=== PATIENT | female | born 1950 | race Caucasian/White ===

== ENCOUNTER 2018-04-13 11:38 | Inpatient (IN) | payer OTHER ==
[2018-04-13] MEDS ORDERED: NS 0.9% 1000 ML** 1,000 ML IV ONE ×4 (11:49→12:48)
[2018-04-13 12:15] LABS: Hematocrit 40 % (35-47); Hemoglobin 12.9 g/dl (12.0-16.0); Mean Corpuscular HGB Conc 32 g/dl (31-36); Mean Corpuscular Hemoglobin 27 pg (27-31); Mean Corpuscular Volume 83 fL (80-97); Mean Platelet Volume 7.9 fL (7.4-10.4); Platelet Count 304 10^3/ul (150-450); Red Blood Count 4.84 10^6/ul (4.00-5.40); Red Cell Distribution Width 14 % (10.5-15); White Blood Count 33.8 10^3/ul (3.5-10.8)
[2018-04-13 12:24] LABS: INR 1.22 (0.77-1.02)
[2018-04-13 12:32] LABS: Albumin 3.7 g/dL (3.2-5.2); Albumin/Globulin Ratio 1.2 (1-3); BUN/Creatinine Ratio 18.9 (8-20); C Reactive Protein 184.55 mg/L (<8.01); Calcium 9.1 mg/dL (8.6-10.3); EGFR Non-African American 62.8 (>60); Globulin 3.2 g/dL (2-4); Magnesium 1.5 mg/dL (1.9-2.7); Potassium 3.6 mmol/L (3.5-5.0); Total Bilirubin 0.6 mg/dL (0.2-1.0); Total Protein 6.9 g/dL (6.4-8.9)
[2018-04-13 12:34] LABS: Troponin I 0.02 ng/mL (<0.04)
--- NOTE | 2018-04-13 12:36 | ED ---
GI/ HPI - HPI Summary HPI Summary: Pt is a 67 y/o female brought in by EMS who presents to the ED c/o N/V. She states she began to vomit last night, and had one additional episode today. Pt also c/o fever, weakness, fatigue, dizziness, and LLE redness, swelling, and warmth. She denies any CP or SOB. PMHx DM. Pt states her blood sugar is normal. She reports frequent intermittent issues with her LLE. - History of Current Complaint Time Seen by Provider: 04/13/18 11:50 Stated Complaint: GENERAL ILLNESS Hx Obtained From: Patient, EMS Onset/Duration: Started Days Ago - 1, Still Present Timing: Constant Current Severity: Moderate Pain Intensity: 3 Location of Pain: Other - LLE Associated Signs and Symptoms: Positive: Dizziness, Weakness, Nausea, Vomiting, Fever Aggravating Factor(s): Nothing Alleviating Factor(s): Nothing - Additional Pertinent History Primary Care Physician: [id number] - Allergy/Home Medications Allergies/Adverse Reactions: Allergies Allergy/AdvReac Type Severity Reaction Status Date / Time ciprofloxacin Allergy Hives Verified 04/13/18 14:16 Penicillins Allergy See Comment Verified 04/13/18 14:16 Home Medications: Home Medications Aspirin 81 mg CHEW TAB* [Aspirin Low Dose TAB*] 81 mg PO BEDTIME 04/13/18 [ History Confirmed 04/13/18] B2/Vits A,C,E/Lut/Zeaxanth/Min [Icaps Tablet] 1 each PO BEDTIME 04/13/18 [ History Confirmed 04/13/18] Lisinopril [Lisinopril 2.5 MG-] 2.5 mg PO DAILY 04/13/18 [History Confirmed 05/27] Metformin HCl [Metformin HCl ER] 1,000 mg PO BID 04/13/18 [History Confirmed 05/27] glipiZIDE [Glipizide ER] 10 mg PO BID 04/13/18 [History Confirmed 04/13/18] PMH/Surg Hx/FS Hx/Imm Hx Endocrine/Hematology History: Reports: Hx Diabetes - TYPE II- ON ORAL MEDICATION FOR Comment Only: Other Endocrine/Hematological Disorders - possible pre diabetic obtaining a1c Cardiovascular History: Reports: Other Cardiovascular Problems/Disorders - HISTORY OF PHLEBITIS TO THE LEFT LEG- LAST 04/2015 Respiratory History: Reports: Hx Pneumonia, Other Respiratory Problems/ Disorders - PNEUMONIA-RECENTLY History: Reports: Hx Kidney Stones - HISTORY CURRENTLY, Other Problems/ Disorders - Chronic UTI'S Denies: Hx Acute Renal Failure, Hx Benign Prostatic Hyperplasia, Hx Kidney Infection Musculoskeletal History: Reports: Hx Back Problems - lower back, injury in 30's Sensory History: Reports: Hx Contacts or Glasses - INSTRUCTS GIVEN Denies: Hx Cataracts, Hx Hearing Aid Opthamlomology History: Reports: Hx Contacts or Glasses - INSTRUCTS GIVEN Denies: Hx Cataracts Neurological History: Reports: Hx Headaches Denies: Hx Dementia, Hx Developmental Delay, Hx Migraine, Hx Nerve Disease, Hx Seizures, Hx Spinal Cord Injury, Hx Transient Ischemic Attacks (TIA), Other Neuro Impairments/Disorders - Cancer History Hx Chemotherapy: No Hx Radiation Therapy: No - Surgical History Surgery Procedure, Year, and Place: hysterectomy CYSTOSCOPY STENT INSERTION-2013 , 2015. 2007- NASAL FRACTURE REPAIR. WISDOM TEETH REMOVED A TEENAGER. 2006 - D&C Hx Anesthesia Reactions: Yes - STATES HAS A VERY SMALL MOUTH AND THROAT - Immunization History Date of Tetanus Vaccine: Unk Date of Influenza Vaccine: None Infectious Disease History: No Infectious Disease History: Denies: Traveled Outside the [place] in Last 30 Days - Family History Known Family History: Negative: Hypertension - Social History Alcohol Use: None Hx Substance Use: No Substance Use Type: Reports: None Hx Tobacco Use: No Smoking Status (MU): Never Smoked Tobacco Review of Systems Positive: Fever, Fatigue, Other - Weakness Negative: Chest Pain Negative: Shortness Of Breath Positive: Vomiting, Nausea Positive: Other - LLE redness, pain, swelling Neurological: Other - Dizziness All Other Systems Reviewed And Are Negative: Yes Physical Exam - Summary Physical Exam Summary: Appearance: Well appearing, no pain distress Skin: dry, reflects adequate perfusion, erythema, warmth, and tenderness of LLE below the knee and above the ankle Head/face: normal Eyes: EOMI, DANDRE ENT: mucous membranes dry Neck: supple, non-tender Respiratory: CTA, breath sounds present Cardiovascular: RRR, pulses symmetrical, murmur Abdomen: non-tender, soft Bowel Sounds: present Musculoskeletal: normal, strength/ROM intact Neuro: normal, sensory motor intact, A&Ox3 Triage Information Reviewed: Yes Vital Signs On Initial Exam: Initial Vitals Temp Pulse Resp BP Pulse Ox 102.2 F 95 40 120/65 96 04/13/18 12:01 04/13/18 12:01 04/13/18 12:01 04/13/18 12:01 04/13/18 12:01 Vital Signs Reviewed: Yes Diagnostics - Vital Signs Vital Signs Temp Pulse Resp BP Pulse Ox 04/13/18 12:01 102.2 F 95 40 120/65 96 - Laboratory Lab Results: Lab Results 04/13/18 04/13/18 04/13/18 Range/Units 12:06 12:06 12:06 WBC 33.8 H (3.5-10.8) 10^3/ul RBC 4.84 (4.00-5.40) 10^6/ul Hgb 12.9 (12.0-16.0) g/dl Hct 40 (35-47) % MCV 83 (80-97) fL MCH 27 (27-31) pg MCHC 32 (31-36) g/dl RDW 14 (10.5-15) % Plt Count 304 (150-450) 10^3/ul MPV 7.9 (7.4-10.4) fL Neut % (Auto) Pending Lymph % (Auto) Pending [place] % (Auto) Pending Eos % (Auto) Pending Baso % (Auto) Pending Absolute Neuts (auto) Pending Absolute Lymphs (auto) Pending Absolute Monos (auto) Pending Absolute Eos (auto) Pending Absolute Basos (auto) Pending Absolute Nucleated RBC Pending Nucleated RBC % Pending INR (Anticoag Therapy) 1.22 H (0.77-1.02) Sodium 134 L (135-145) mmol/L Potassium 3.6 (3.5-5.0) mmol/L Chloride 101 (101-111) mmol/L Carbon Dioxide 22 (22-32) mmol/L Anion Gap 11 (2-11) mmol/L BUN 17 (6-24) mg/dL Creatinine 0.90 (0.51-0.95) mg/dL Est GFR ( Amer) 76.0 (>60) Est GFR (Non-Af Amer) 62.8 (>60) BUN/Creatinine Ratio 18.9 (8-20) Glucose 258 H (70-100) mg/dL Calcium 9.1 (8.6-10.3) mg/dL Magnesium 1.5 L (1.9-2.7) mg/dL Total Bilirubin 0.60 (0.2-1.0) mg/dL AST 14 (13-39) U/L ALT 16 (7-52) U/L Alkaline Phosphatase 58 (34-104) U/L Troponin I 0.02 (<0.04) ng/mL C-Reactive Protein 184.55 H (<8.01) mg/L Total Protein 6.9 (6.4-8.9) g/dL Albumin 3.7 (3.2-5.2) g/dL Globulin 3.2 (2-4) g/dL Albumin/Globulin Ratio 1.2 (1-3) TSH Pending Result Diagrams: 04/13/18 12:06 04/13/18 12:06 Lab Statement: Any lab studies that have been ordered have been reviewed, and results considered in the medical decision making process. - Radiology CXR Radiology Interpretation Completed By: Radiologist Summary of Radiographic Findings: No radiographic evidence for acute cardiopulmonary abnormality on this. portable chest x-ray. ED physician reviewed radiology report. - Ultrasound No standard instances Ultrasound Interpretation Completed By: Radiologist Summary of Ultrasound Findings: Venous Doppler Study: No sonographic evidence of deep vein thrombosis. ED physician reviewed radiology report. - EKG 12:09 Cardiac Rate: NL - [address] Segment: Normal Summary of EKG Findings: Nl axis, RBBB GIGU Course/Dx - Course Course Of Treatment: Nurse's notes reviewed. Patient with diabetes presents with Sirs/sepsis and source apparent in the skin of the lower leg on the left. She was started on IV clindamycin and received IV fluid resuscitation. Her blood sugars modestly elevated. Her WBC is grossly elevated. I discussed the case with the hospitalist who agrees to admit. Patient is stable otherwise. Lactate elevated meeting criteria for severe sepsis without shock. - Diagnoses Differential Diagnoses - Female: Other - UTI, pneumonia, cellulitis, sepsis/ severe sepsis, septic shock, DKA Provider Diagnoses: Cellulitis of left leg, Severe sepsis, Hyperglycemia due to type 2 diabetes mellitus - Physician Notifications Discussed Care Of Patient With: Dillon Levine Time Discussed With Above Provider: 12:40 Instructed by Provider To: Admit As Inpatient - Critical Care Time Critical Care Time: 30-74 min - Critical care time is exclusive of separately billable procedures Discharge - Sign-Out/Discharge Documenting (check all that apply): Patient Departure - Admit Patient Received Moderate/Deep Sedation with Procedure: No - Discharge Plan Condition: Stable Disposition: ADMITTED TO [facility] - Billing Disposition and Condition Condition: STABLE Disposition: Admitted to [facility] - Attestation Statements Document Initiated by Eloiseibe: Yes Documenting Scribe: Earnestine Palmer Provider For Whom Scribe is Documenting (Include Credential): Dequan Underwood MD Scribe Attestation: Earnestine Hayes, scribed for Dequan Underwood MD on 04/13/18 at 2105. Scribe Documentation Reviewed: Yes Provider Attestation: The documentation as recorded by the Earnestine leon accurately reflects the service I personally performed and the decisions made by Dequan sheffield MD Status of Scribe Document: Viewed
[2018-04-13 12:41] LABS: ABS Basophils 0.2 10^3/ul (0-0.2); ABS Eosinophils 0 10^3/ul (0-0.6); ABS Lymphocytes 0.5 10^3/ul (1.0-4.8); ABS Monocytes 1.4 10^3/ul (0-0.8); ABS Neutrophils 31.8 10^3/ul (1.5-7.7); ABS Nucleated RBC 0 10^3/ul; Eosinophil % 0 %; Lymphocyte % 1.4 %; Nucleated Red Blood Cells % 0
[2018-04-13] MEDS ORDERED: Magnesium Sulfate IV* 3 GM in NS 0.9% 100 ML* 100 ML IVPB ONE (13:14)
[2018-04-13] MEDS ORDERED: Vancomycin(*) 1,000 MG in NS 0.9% 250 ML* 250 ML IVPB ONE (13:16)
[2018-04-13 13:24] LABS: TSH (Thyroid Stimulating Horm) 1.03 mcIU/mL (0.34-5.60)
[2018-04-13] MEDS ORDERED: NS 0.9% 250 ML* 250 ML ONE (13:55)
[2018-04-13] MEDS ORDERED: Vancomycin(*) 1,000 MG BAG/ADDV IVPB ONE (13:56)
[2018-04-13] MEDS ORDERED: Dextrose 50% Syringe 50 ML* 25 GM/50 ML SYRINGE IV PUSH PRN (14:05)
[2018-04-13] MEDS: Acetaminophen TAB* 325 MG PO PRN ×2 (16:21→22:17)
[2018-04-13] MEDS: NS 0.9% 1000 ML** 1,000 ML IV SCH (17:13)
[2018-04-13] MEDS: Insulin LISPRO* 1 UNITS UNIT SUBCUT SCH (17:32)
[2018-04-13 17:41] LABS: Urine Appearance Cloudy; Urine Bacteria 3+ (Absent); Urine Bilirubin Negative (Negative); Urine Blood 2+ (Negative); Urine Color Amber; Urine Glucose Negative (Negative); Urine Ketones Negative (Negative); Urine Nitrite Positive (Negative); Urine Protein 1+(30 mg/dL) (Negative); Urine Red Blood Cell 1+(3-5/hpf) (Absent); Urine Specific Gravity 1.017 (1.010-1.030); Urine Squamous Epithelial Cell Present (Absent); Urine Urobilinogen Negative (Negative); Urine White Blood Cell 3+(>20/hpf) (Absent)
[2018-04-13] MEDS ORDERED: Vancomycin per Pharmacy* NOTE FOLLOW UP PRN (17:58)
[2018-04-13] MEDS ORDERED: cefTRIAXone(*) 1 GM in NS 0.9% 50 ML* 50 ML IVPB SCH (18:00)
--- NOTE | 2018-04-13 19:11 | HP ---
CC: Dr. Horn * [facility] MEDICINE HISTORY AND PHYSICAL: DATE OF ADMISSION: 04/13/18 PRIMARY CARE PHYSICIAN: Dr. Horn. ATTENDING PHYSICIAN: Dr. Dillon Levine * (dictation provided by Yessica Patterson NP). CHIEF COMPLAINT: Nausea, vomiting, and confusion. HISTORY OF PRESENT ILLNESS: Ms. Arthur is a 67-year-old female with a past medical history of diabetes and frequent urinary tract infections with kidney stones, who presents to the hospital today with concern for nausea and vomiting last night and now with confusion. Ms. Arthur is supported in her HPI by her family who are at the bedside. They report that she remains a bit confused at this time and they provide corroborating details. Ms. Arthur is reported to have been doing well until yesterday. She went out to a local restaurant to eat and thereafter she had nausea and vomiting. Her family noted that she seemed somewhat confused, but not enough to raise any alarms while driving. Thereafter, she went to bed and seemed to be doing okay. The patient's daughter spoke with her this morning on the phone and she seemed quite confused and therefore they came to check on her and ultimately had her brought to the emergency room for evaluation. In the emergency room, Ms. Arthur has been noted to have a leukocytosis with a white blood cell count of 33.8. She has a lactic acid at 3.4. Her CRP is 184.55. She has a fever at 102.2. Her blood pressure is stable running systolically 120s to 130s. She has a venous Doppler study, which shows no DVT to the left lower extremity where there is erythema and warmth. PAST MEDICAL HISTORY: 1. Type 2 diabetes, non-insulin dependent. 2. History of kidney stones and frequent urinary tract infections, followed by [facility]. MEDICATIONS: 1. Glipizide ER 10 mg p.o. b.i.d. 2. Metformin ER 1000 mg p.o. b.i.d. 3. Lisinopril 2.5 mg daily. 4. VESIcare 10 mg p.o. daily. 5. Potassium citrate 20 mEq p.o. b.i.d. 6. Multivitamin 1 tab p.o. daily. ALLERGIES: CIPROFLOXACIN and PENICILLIN. FAMILY HISTORY: Mother had a history of breast cancer and father had a history of Parkinson. SOCIAL HISTORY: No report of alcohol, tobacco or drug use. She is . She states that her surrogate decision maker is her , Abdelrahman. REVIEW OF SYSTEMS: A 14-point review of systems was completed with Ms. Arthur and all those not mentioned above were negative. PHYSICAL EXAMINATION GENERAL: Ms. Arthur is lying in the bed. She is in no acute distress. VITAL SIGNS: Temperature 102.2, pulse rate 95, respiratory rate 27, O2 saturation 97% on room air, blood pressure 132/69. LUNGS: Clear to auscultation bilaterally with no accessory muscle use and good aeration. HEART: S1 and S2. No murmur, rub or gallop, and regular. ABDOMEN: Soft and nontender with bowel sounds positive x4. EXTREMITIES: No cyanosis. Positive for mild edema to the left calf with pronounced erythema and warmth. NEUROLOGIC: She is alert. She is oriented x3, but the family reports that she is not answering some questions appropriately or correctly. She moves all extremities equally. There is no facial asymmetry or focal weakness. Extraocular movements are intact. SKIN: No skin breakdown, but again erythema and warmth is noted to the left calf ranging from the ankle to just below the knee and this has been outlined with a marker in the emergency department today. DIAGNOSTIC STUDIES/LAB DATA: Chest x-ray shows no radiographic evidence for acute cardiopulmonary abnormality. The evening Doppler's study shows no evidence for DVT. EKG shows a sinus tachycardia with a right bundle-branch block, which is not new. ASSESSMENT AND PLAN: Ms. Arthur is a 67-year-old female with a past medical history of diabetes, who presents today to the hospital with concern for nausea , vomiting, confusion, and now found to have sepsis likely to left lower extremity cellulitis. Our plans are for inpatient admission as I expect her length of stay to be greater than 2 days for the followin. Sepsis secondary to cellulitis. The patient has a dramatically elevated white blood cell count. She has an elevated CRP and she is febrile. She has a pronounced erythema and warmth in her left lower extremity consistent with likely cellulitis. Our plans will be to treat with vancomycin given the severity of her illness and we can deescalate her antibiotic therapy once she is more clinically stable. She has been ordered to receive an appropriate amount of IV fluids in the emergency department at 30 mL/kg. Her lactic acid was elevated, we will be rechecking this shortly. Blood cultures have been sent. 2. Type 2 diabetes. Plan to hold metformin and glipizide. The patient will have blood glucoses q.a.c. with lispro sliding scale insulin. We could add Lantus if need be. 3. DVT prophylaxis with heparin subcu. 4. Code status is full code. 5. Hypomagnesemia. Plan to replete her magnesium. 6. Disposition to medical floor. TIME SPENT: Approximately 60 minutes was spent in the admission of this patient , more than half of that time was spent with the patient at the bedside reviewing the events leading up to this hospitalization, performing the physical examination, and reviewing my plan of care. YESSICA PATTERSON, ELVIS [id number]/CPS #: [id number]
--- NOTE | 2018-04-13 19:38 | PN ---
Progress Note - Progress Note Date of Service: 04/13/18 Note: Note is made that patient has a grossly positive UA, plan to add ceftriaxone pending urine culture results.
[2018-04-13] MEDS: Heparin VIAL(*) 5000 UNITS/ML VIAL (FIVE THOUSAND) SUBCUT SCH (22:15)
[2018-04-13] MEDS: PTO:Potassium Citrate (NF) 10 MEQ TAB PO SCH (22:15)
[2018-04-14] MEDS: Vancomycin(*) 1,250 MG in NS 0.9% 250 ML* 250 ML IVPB SCH ×2 (00:20→16:12)
[2018-04-14] MEDS ORDERED: Ibuprofen TAB* 400 MG ONE (03:57)
[2018-04-14] MEDS: Ibuprofen TAB* 400 MG PO PRN ×3 (03:58→15:45)
[2018-04-14 06:15] LABS: ABS Basophils 0.1 10^3/ul (0-0.2); ABS Eosinophils 0 10^3/ul (0-0.6); ABS Lymphocytes 0.8 10^3/ul (1.0-4.8); ABS Nucleated RBC 0 10^3/ul; Eosinophil % 0 %; Hematocrit 34 % (35-47); Lymphocyte % 4.5 %; Mean Corpuscular HGB Conc 33 g/dl (31-36); Mean Corpuscular Hemoglobin 27 pg (27-31); Mean Corpuscular Volume 83 fL (80-97); Mean Platelet Volume 7.9 fL (7.4-10.4); Nucleated Red Blood Cells % 0; Platelet Count 216 10^3/ul (150-450); Red Blood Count 4.04 10^6/ul (4.00-5.40); Red Cell Distribution Width 15 % (10.5-15); White Blood Count 16.8 10^3/ul (3.5-10.8)
[2018-04-14 06:45] LABS: BUN/Creatinine Ratio 22.7 (8-20); Calcium 7.8 mg/dL (8.6-10.3); EGFR African American 93.8 (>60); EGFR Non-African American 77.6 (>60); Potassium 3.4 mmol/L (3.5-5.0)
[2018-04-14] MEDS: Heparin VIAL(*) 5000 UNITS/ML VIAL (FIVE THOUSAND) SUBCUT SCH ×3 (09:39→21:21)
[2018-04-14] MEDS: NS 0.9% 1000 ML** 1,000 ML IV SCH (09:50)
[2018-04-14] MEDS ORDERED: ceFAZolin 2 GM PREMIX in ORs 2 GM/50 ML BAG IVPB SCH (10:30)
[2018-04-14] MEDS: Insulin LISPRO* 1 UNITS UNIT SUBCUT SCH ×3 (12:03→17:43)
[2018-04-14 12:10] LABS: Influenza A Molecular NEGATIVE (Negative); Influenza B Molecular NEGATIVE (Negative)
[2018-04-14] MEDS: PTO:Potassium Citrate (NF) 10 MEQ TAB PO SCH ×2 (12:45→21:19)
--- NOTE | 2018-04-14 14:54 | PN ---
Subjective Date of Service: 04/14/18 Interval History: Tmax 103.3, defervseced. Complaint of headache, body ache, nonproductive cough. Flu swab negative this AM got 2 doses of vancomycin and cftx (for suspected UTI) WBC improved to 16.8 from 33.8. antibiotics switched to cefazolin this AM after rash seemed improved from original outline but about 12 hours after second vancomycin dose some blotchy mild ertyhema and warmth extended proximal to outline and vanc+ cftx reordered. confusion resolved. no chest pain, abdominal pain. A1C 6.4 in February she says. Objective Active Medications: Acetaminophen (Tylenol Tab*) 650 mg PO Q6H PRN PRN Reason: pain/fever Last Admin: 04/13/18 22:17 Dose: 650 mg Dextrose (D50w Syringe 50 Ml*) 12.5 gm IV PUSH .FOR FS < 60 - SS PRN PRN Reason: FS < 60 Heparin Sodium (Porcine) (Heparin Vial(*)) 5,000 units SUBCUT Q8HR [facility] Last Admin: 04/14/18 12:44 Dose: 5,000 units Sodium Chloride (Ns 0.9% 1000 Ml) 1,000 mls @ 75 mls/hr IV PER RATE [facility] Last Admin: 04/14/18 09:50 Dose: 75 mls/hr Ceftriaxone Sodium 1 gm/ (Sodium Chloride) 50 mls @ 200 mls/hr IVPB Q24H [facility] Ibuprofen (Motrin Tab*) 400 mg PO Q6H PRN PRN Reason: PAIN Last Admin: 04/14/18 09:38 Dose: 400 mg Insulin Human Lispro (Humalog*) 0 units SUBCUT [facility]; Protocol Last Admin: 04/14/18 12:46 Dose: 2 units Pharmacy Consult (Vancomycin Per Pharmacy*) 1 note FOLLOW UP . PRN PRN Reason: PER PROTOCOL Pharmacy Consult (Vancomycin Per Pharmacy*) 1 note FOLLOW UP .VANC PER PHARMACY [facility] Pharmacy Profile Note (Vancomycin Trough Check) 1 note FOLLOW UP 1130 ONE Stop: 04/15/18 11:31 Potassium Citrate (Urocit-K 10 (Nf)) 20 meq PO BID [facility] Last Admin: 04/14/18 12:45 Dose: 20 meq Solifenacin (Vesicare(Nf)) 10 mg PO DAILY [facility] Vancomycin HCl (Vancomycin(*)) 2,000 mg 15 mg/kg (2000 mg) IVPB ONCE CELIA Vital Signs - 8 hr 04/14/18 04/14/18 04/14/18 07:20 08:00 11:24 Temperature 97.8 F 97.9 F Pulse Rate 73 74 Respiratory 17 16 18 Rate Blood Pressure 120/58 123/56 (mmHg) O2 Sat by Pulse 96 97 Oximetry Oxygen Devices in Use Now: None Appearance: NAD Eyes: No Scleral Icterus Neck: NL Appearance and Movements; NL JVP, Trachea Midline Respiratory: Symmetrical Chest Expansion and Respiratory Effort, Clear to Auscultation Cardiovascular: NL Sounds; No Murmurs; No JVD, RRR Abdominal: NL Sounds; No Tenderness; No Distention, No Hepatosplenomegaly, - - morbidly obese Extremities: No Edema, - - left calf with erythema circumferential band distally , milder more proximally. now mild erythema and warmth proximally. 1+ pitting edema. Skin: No Rash or Ulcers Neurological: Alert and Oriented x 3 Nutrition: Taking PO's Result Diagrams: 04/14/18 05:59 04/14/18 05:59 Additional Lab and Data: Laboratory Results - last 24 hr 04/13/18 04/13/18 04/13/18 15:30 17:09 18:12 WBC RBC Hgb Hct MCV MCH MCHC RDW Plt Count MPV Neut % (Auto) Lymph % (Auto) [place] % (Auto) Eos % (Auto) Baso % (Auto) Absolute Neuts (auto) Absolute Lymphs (auto) Absolute Monos (auto) Absolute Eos (auto) Absolute Basos (auto) Absolute Nucleated RBC Nucleated RBC % Sodium Potassium Chloride Carbon Dioxide Anion Gap BUN Creatinine Est GFR ( Amer) Est GFR (Non-Af Amer) BUN/Creatinine Ratio Glucose POC Glucose (mg/dL) 193 H Lactic Acid 1.9 Calcium Urine Color [place] Urine Appearance Cloudy Urine pH 6.0 Ur Specific [place] 1.017 Urine Protein 1+(30 mg/dl) A Urine Ketones Negative Urine Blood 2+ A Urine Nitrate Positive A Urine Bilirubin Negative Urine Urobilinogen Negative Ur Leukocyte Esterase 1+ A Urine WBC (Auto) 3+(>20/hpf) A Urine RBC (Auto) 1+(3-5/hpf) A Ur Squamous Epith Cells Present A Urine Bacteria 3+ A Urine Glucose Negative Influenza A (Rapid) Influenza B (Rapid) 04/14/18 04/14/18 04/14/18 05:59 05:59 07:55 WBC 16.8 H RBC 4.04 Hgb 11.0 L Hct 34 L MCV 83 MCH 27 MCHC 33 RDW 15 Plt Count 216 MPV 7.9 Neut % (Auto) 89.3 Lymph % (Auto) 4.5 [place] % (Auto) 5.7 Eos % (Auto) 0 Baso % (Auto) 0.5 Absolute Neuts (auto) 15.0 H Absolute Lymphs (auto) 0.8 L Absolute Monos (auto) 1.0 H Absolute Eos (auto) 0 Absolute Basos (auto) 0.1 Absolute Nucleated RBC 0 Nucleated RBC % 0 Sodium 136 Potassium 3.4 L Chloride 109 Carbon Dioxide 21 L Anion Gap 6 BUN 17 Creatinine 0.75 Est GFR ( Amer) 93.8 Est GFR (Non-Af Amer) 77.6 BUN/Creatinine Ratio 22.7 H Glucose 134 H POC Glucose (mg/dL) 123 H Lactic Acid Calcium 7.8 L Urine Color Urine Appearance Urine pH Ur Specific [place] Urine Protein Urine Ketones Urine Blood Urine Nitrate Urine Bilirubin Urine Urobilinogen Ur Leukocyte Esterase Urine WBC (Auto) Urine RBC (Auto) Ur Squamous Epith Cells Urine Bacteria Urine Glucose Influenza A (Rapid) Influenza B (Rapid) 04/14/18 04/14/18 11:50 11:58 WBC RBC Hgb Hct MCV MCH MCHC RDW Plt Count MPV Neut % (Auto) Lymph % (Auto) [place] % (Auto) Eos % (Auto) Baso % (Auto) Absolute Neuts (auto) Absolute Lymphs (auto) Absolute Monos (auto) Absolute Eos (auto) Absolute Basos (auto) Absolute Nucleated RBC Nucleated RBC % Sodium Potassium Chloride Carbon Dioxide Anion Gap BUN Creatinine Est GFR ( Amer) Est GFR (Non-Af Amer) BUN/Creatinine Ratio Glucose POC Glucose (mg/dL) 145 H Lactic Acid Calcium Urine Color Urine Appearance Urine pH Ur Specific [place] Urine Protein Urine Ketones Urine Blood Urine Nitrate Urine Bilirubin Urine Urobilinogen Ur Leukocyte Esterase Urine WBC (Auto) Urine RBC (Auto) Ur Squamous Epith Cells Urine Bacteria Urine Glucose Influenza A (Rapid) Negative Influenza B (Rapid) Negative Microbiology and Other Data: Microbiology 04/13/18 12:23 Blood Venous Aerobic Blood Culture - Preliminary No Growth Day 1 04/13/18 12:23 Blood Venous Anaerobic Blood Culture - Preliminary No Growth Day 1 04/13/18 12:06 Blood Venous Aerobic Blood Culture - Preliminary No Growth Day 1 04/13/18 12:06 Blood Venous Anaerobic Blood Culture - Preliminary No Growth Day 1 04/14/18 10:08 Nasal Influenza Types A,B Antigen - Final Specimen received for Influenza A/B Molecular testing Assess/Plan/Problems-Billing Assessment: 67 yo female PMH NIDDM, super morbid obesity, frequent kidney stones and UTIs presents with sepsis(fever 103.3, WBC 33.8, tachycardia) secondary to left leg cellulitis. UA suspicious for UTI. Vancomycin/Ceftriaxone. - Patient Problems (1) Cellulitis Current Visit: Yes Status: Acute Code(s): L03.90 - CELLULITIS, UNSPECIFIED SNOMED Code(s): 984198018 Comment: Seemed improving on vancomycin and may have back slide a little bit after 12hr after last dose (while getting cefazolin instead). Will return to MRSA coverage with vancomycin. f/u blood cultures. nonpurulent. (2) Sepsis Current Visit: No Status: Acute Priority: High Comment: likely 2/2 Cellulitis and UTI. Improving on empiric MRSA coverage vancomycin given acuity and severity of presentation. (3) UTI (urinary tract infection) Current Visit: Yes Status: Acute Comment: f/u UCx Continue Cftx 1g q24. day 2. (4) DVT prophylaxis Current Visit: No Status: Acute Priority: Medium Code(s): LXI2261 - SNOMED Code(s): 135674904 Comment: heparin 5000 TID (5) Diabetes Current Visit: No Status: Chronic Priority: Medium Code(s): E11.9 - TYPE 2 DIABETES MELLITUS WITHOUT COMPLICATIONS SNOMED Code(s): 67900759 Comment: holding home metformin, glipizide. SSI poc qachs last A1C reportedly 6.4 in Feb 2018 Status and Disposition: medicine inpatient. needing IV antibiotics still.
[2018-04-14] MEDS ORDERED: Vancomycin(*) 1,000 MG in NS 0.9% 250 ML* 250 ML IVPB SCH (15:00)
[2018-04-14] MEDS ORDERED: Vancomycin(*) 1,000 MG VIAL IVPB SCH (15:00)
[2018-04-14] MEDS ORDERED: Vancomycin(*) 2,000 MG in NS 0.9% 500 ML* 500 ML IVPB ONE (15:00)
[2018-04-14] MEDS ORDERED: Vancomycin per Pharmacy* NOTE FOLLOW UP SCH (15:00)
[2018-04-14] MEDS: Acetaminophen TAB* 325 MG PO PRN (15:45)
[2018-04-14] MEDS: Vancomycin(*) 1,000 MG in NS 0.9% 250 ML* 250 ML IVPB SCH ×2 (15:49→22:50)
[2018-04-14] MEDS: Lisinopril TAB* 5 MG PO SCH (17:44)
[2018-04-14] MEDS ORDERED: cefTRIAXone(*) 1 GM in NS 0.9% 50 ML* 50 ML IVPB SCH (18:00)
[2018-04-14] MEDS ORDERED: SUMAtriptan TAB* 50 MG PO ONE (18:05)
[2018-04-14] MEDS ORDERED: oxyCODONE/Acetamin 5/325 MG* TAB PO ONE (22:47)
[2018-04-14] MEDS: ICAPS PO SCH (23:26)
[2018-04-15] MEDS: NS 0.9% 1000 ML** 1,000 ML IV SCH ×2 (02:28→16:58)
[2018-04-15] MEDS: oxyCODONE/Acetamin 5/325 MG* TAB PO PRN ×4 (02:51→22:23)
[2018-04-15 05:58] LABS: ABS Basophils 0 10^3/ul (0-0.2); ABS Eosinophils 0.1 10^3/ul (0-0.6); ABS Lymphocytes 0.7 10^3/ul (1.0-4.8); ABS Monocytes 0.8 10^3/ul (0-0.8); ABS Neutrophils 9.7 10^3/ul (1.5-7.7); ABS Nucleated RBC 0 10^3/ul; Eosinophil % 0.7 %; Hematocrit 35 % (35-47); Hemoglobin 11.2 g/dl (12.0-16.0); Lymphocyte % 6.3 %; Mean Corpuscular HGB Conc 33 g/dl (31-36); Mean Corpuscular Hemoglobin 27 pg (27-31); Mean Corpuscular Volume 84 fL (80-97); Mean Platelet Volume 8.4 fL (7.4-10.4); Nucleated Red Blood Cells % 0; Platelet Count 221 10^3/ul (150-450); Red Blood Count 4.12 10^6/ul (4.00-5.40); Red Cell Distribution Width 15 % (10.5-15); White Blood Count 11.4 10^3/ul (3.5-10.8)
[2018-04-15 06:19] LABS: BUN/Creatinine Ratio 22.7 (8-20); C Reactive Protein 302.59 mg/L (<8.01); EGFR African American 108.8 (>60); EGFR Non-African American 89.9 (>60); Potassium 3.9 mmol/L (3.5-5.0)
[2018-04-15] MEDS: Heparin VIAL(*) 5000 UNITS/ML VIAL (FIVE THOUSAND) SUBCUT SCH ×3 (06:25→20:19)
[2018-04-15] MEDS: Vancomycin(*) 1,000 MG in NS 0.9% 250 ML* 250 ML IVPB SCH ×2 (06:25→13:52)
[2018-04-15 06:58] LABS: Erythrocyte Sed Rate 74 mm/Hr (0-40)
[2018-04-15] MEDS: Lisinopril TAB* 5 MG PO SCH (08:51)
[2018-04-15] MEDS: PTO: Solifenacin(NF) 10 MG TAB PO SCH (08:52)
[2018-04-15] MEDS: PTO:Potassium Citrate (NF) 10 MEQ TAB PO SCH ×2 (08:52→20:18)
[2018-04-15] MEDS: Insulin LISPRO* 1 UNITS UNIT SUBCUT SCH ×3 (08:53→17:55)
[2018-04-15] MEDS ORDERED: oxyCODONE TAB* 5 MG TAB PO ONE (10:56)
[2018-04-15] MEDS: Acetaminophen TAB* 325 MG PO PRN (11:16)
--- NOTE | 2018-04-15 11:28 | PN ---
Subjective Date of Service: 04/15/18 Interval History: progressive and worsened erythema to both the original boundary lines and the new lines from yesterday leukocytosis improved. Tmax 100.5 this AM. headaches continue, improved with percoset but then came back. stabbing then pinching. ID consulted. Objective Active Medications: Acetaminophen (Tylenol Tab*) 650 mg PO Q6H PRN PRN Reason: pain/fever Last Admin: 04/15/18 11:16 Dose: 650 mg Dextrose (D50w Syringe 50 Ml*) 12.5 gm IV PUSH .FOR FS < 60 - SS PRN PRN Reason: FS < 60 Docusate Sodium (Colace Cap*) 100 mg PO BID PRN PRN Reason: CONSTIPATION Heparin Sodium (Porcine) (Heparin Vial(*)) 5,000 units SUBCUT Q8HR [facility] Last Admin: 04/15/18 06:25 Dose: 5,000 units Sodium Chloride (Ns 0.9% 1000 Ml) 1,000 mls @ 75 mls/hr IV PER RATE [facility] Last Admin: 04/15/18 02:28 Dose: 75 mls/hr Ceftriaxone Sodium 1 gm/ (Sodium Chloride) 50 mls @ 200 mls/hr IVPB Q24H [facility] Last Admin: 04/14/18 18:04 Dose: 200 mls/hr Vancomycin HCl 1,000 mg/ (Sodium Chloride) 250 mls @ 166.667 mls/hr IVPB Q8HR [facility] Last Admin: 04/15/18 06:25 Dose: 166.667 mls/hr Ibuprofen (Motrin Tab*) 400 mg PO Q6H PRN PRN Reason: PAIN Last Admin: 04/14/18 15:45 Dose: 400 mg Insulin Human Lispro (Humalog*) 0 units SUBCUT AC [facility]; Protocol Last Admin: 04/15/18 08:53 Dose: 2 units Lisinopril (Prinivil Tab*) 2.5 mg PO DAILY [facility] Last Admin: 04/15/18 08:51 Dose: 2.5 mg Pto: [Icaps Tablet] 1 each PO BEDTIME [facility] Last Admin: 04/14/18 23:26 Dose: 1 each Oxycodone/Acetaminophen (Percocet 5/325 Tab*) 1 tab PO Q6H PRN PRN Reason: PAIN Last Admin: 04/15/18 08:51 Dose: 1 tab Pharmacy Consult (Vancomycin Per Pharmacy*) 1 note FOLLOW UP .VANC PER PHARMACY [facility] Pharmacy Profile Note (Vancomycin Trough Check) 1 note FOLLOW UP ONCE ONE Stop: 04/16/18 05:31 Potassium Citrate (Urocit-K 10 (Nf)) 20 meq PO BID [facility] Last Admin: 04/15/18 08:52 Dose: 20 meq Senna (Senokot Tab*) 1 tab PO BEDTIME PRN PRN Reason: CONSTIPATION Solifenacin (Vesicare(Nf)) 10 mg PO DAILY [facility] Last Admin: 04/15/18 08:52 Dose: 10 mg Vital Signs - 8 hr 04/15/18 04/15/18 04/15/18 03:42 04:55 07:38 Temperature 99.6 F 98.9 F Pulse Rate 79 83 Respiratory 16 18 18 Rate Blood Pressure 132/57 135/68 (mmHg) O2 Sat by Pulse 94 98 Oximetry 04/15/18 04/15/18 04/15/18 08:51 08:56 10:55 Temperature 100.5 F Pulse Rate Respiratory 18 18 Rate Blood Pressure (mmHg) O2 Sat by Pulse Oximetry 04/15/18 11:16 Temperature Pulse Rate Respiratory 18 Rate Blood Pressure (mmHg) O2 Sat by Pulse Oximetry Oxygen Devices in Use Now: None Appearance: NAd Eyes: No Scleral Icterus, PERRLA Neck: NL Appearance and Movements; NL JVP, Trachea Midline Respiratory: Symmetrical Chest Expansion and Respiratory Effort, Clear to Auscultation Cardiovascular: NL Sounds; No Murmurs; No JVD Extremities: - - left leg with worse and more expansive erythema, non fluctuant. tender Skin: - - as above. Neurological: Alert and Oriented x 3, NL Sensation Nutrition: Taking PO's Result Diagrams: 04/15/18 05:35 04/15/18 05:35 Additional Lab and Data: Laboratory Results - last 24 hr 04/15/18 04/15/18 04/15/18 05:35 05:35 07:47 WBC 11.4 H RBC 4.12 Hgb 11.2 L Hct 35 MCV 84 MCH 27 MCHC 33 RDW 15 Plt Count 221 MPV 8.4 Neut % (Auto) 85.7 Lymph % (Auto) 6.3 [place] % (Auto) 7.0 Eos % (Auto) 0.7 Baso % (Auto) 0.3 Absolute Neuts (auto) 9.7 H Absolute Lymphs (auto) 0.7 L Absolute Monos (auto) 0.8 Absolute Eos (auto) 0.1 Absolute Basos (auto) 0 Absolute Nucleated RBC 0 Nucleated RBC % 0 ESR 74 H Sodium 136 Potassium 3.9 Chloride 107 Carbon Dioxide 22 Anion Gap 7 BUN 15 Creatinine 0.66 Est GFR ( Amer) 108.8 Est GFR (Non-Af Amer) 89.9 BUN/Creatinine Ratio 22.7 H Glucose 152 H POC Glucose (mg/dL) 140 H Calcium 8.0 L C-Reactive Protein 302.59 H 04/15/18 04/15/18 11:59 16:50 WBC RBC Hgb Hct MCV MCH MCHC RDW Plt Count MPV Neut % (Auto) Lymph % (Auto) [place] % (Auto) Eos % (Auto) Baso % (Auto) Absolute Neuts (auto) Absolute Lymphs (auto) Absolute Monos (auto) Absolute Eos (auto) Absolute Basos (auto) Absolute Nucleated RBC Nucleated RBC % ESR Sodium Potassium Chloride Carbon Dioxide Anion Gap BUN Creatinine Est GFR ( Amer) Est GFR (Non-Af Amer) BUN/Creatinine Ratio Glucose POC Glucose (mg/dL) 162 H 181 H Calcium C-Reactive Protein Microbiology and Other Data: Microbiology 04/13/18 15:30 Urine Urine Culture - Final Escherichia Coli Escherichia Coli#2 04/13/18 12:23 Blood Venous Aerobic Blood Culture - Preliminary No Growth Day 2 04/13/18 12:23 Blood Venous Anaerobic Blood Culture - Preliminary No Growth Day 2 04/13/18 12:23 Blood Venous Blood Culture - Preliminary No Growth Day 2 04/13/18 12:06 Blood Venous Aerobic Blood Culture - Preliminary No Growth Day 2 04/13/18 12:06 Blood Venous Anaerobic Blood Culture - Preliminary No Growth Day 2 04/14/18 10:08 Nasal Influenza Types A,B Antigen - Final Specimen received for Influenza A/B Molecular testing Assess/Plan/Problems-Billing Assessment: 67 yo female PMH NIDDM, super morbid obesity, frequent kidney stones and UTIs presents with sepsis(fever 103.3, WBC 33.8, tachycardia) secondary to left leg cellulitis. UA suspicious for UTI. Vancomycin/Ceftriaxone and now cefazolin. - Patient Problems (1) Cellulitis Current Visit: Yes Status: Acute Code(s): L03.90 - CELLULITIS, UNSPECIFIED SNOMED Code(s): 399808424 Comment: Seemed to worsen last 24 hours on vancomycin + cftz. Appreciate ID recs. Suspicius for streptococcal cellulitis and switched back to cefazolin. f/u blood cultures. nonpurulent. (2) Sepsis Current Visit: No Status: Acute Priority: High Comment: likely 2/2 Cellulitis and UTI.Plan as above. (3) UTI (urinary tract infection) Current Visit: Yes Status: Acute Comment: Back to Cefazolin 1g q8. day 3 abx. (4) DVT prophylaxis Current Visit: No Status: Acute Priority: Medium Code(s): URZ3080 - SNOMED Code(s): 900074352 Comment: heparin 5000 TID (5) Diabetes Current Visit: No Status: Chronic Priority: Medium Code(s): E11.9 - TYPE 2 DIABETES MELLITUS WITHOUT COMPLICATIONS SNOMED Code(s): 30564023 Comment: holding home metformin, glipizide. SSI poc qachs last A1C reportedly 6.4 in Feb 2018 Status and Disposition: medicine inpatient. needing IV antibiotics still.
[2018-04-15] MEDS: ceFAZolin 1 GM ADVAN(*) 1 GM in NS 0.9% 50 ML* 50 ML IVPB SCH ×2 (16:04→22:23)
--- NOTE | 2018-04-15 16:04 | CONS ---
CONSULTATION REPORT: DATE OF CONSULT: 04/15/18 REQUESTING PHYSICIAN: Dr. Levine. CONSULTING SERVICE: Infectious Disease. REASON FOR CONSULT: Left leg cellulitis. HISTORY OF PRESENT ILLNESS: This is a 67-year-old woman with diabetes, admitted with encephalopathy due to infection. She was found to have left leg cellulitis in the ER. She was started on broad-spectrum antibiotics. She was continued on them here. The redness has waxed and waned a little bit. She had some lymphadenitis on the left thigh. She had fever initially which was resolving. She had headache develop over the last day or 2 which lasts for about a second, a few times a minute and quite severe, has had her tears. Tylenol and ibuprofen did not help. She has no neck stiffness or photophobia. She had a left leg cellulitis about 15 years ago. She does wear compression stockings for a touch of swelling that may develop during the course of the day. PAST MEDICAL HISTORY: 1. Type 2 diabetes. 2. Nephrolithiasis and history of ureteral stent, not now. 3. Recurrent urinary tract infection. MEDICATIONS: 1. Tylenol. 2. Docusate. 3. Heparin. 4. Ibuprofen. 5. Ceftriaxone. 6. Vancomycin. 7. Lisinopril. 8. Senna. 9. Sumatriptan once. ALLERGIES: CIPRO and PENICILLIN. FAMILY HISTORY: No recurrent infections. SOCIAL HISTORY: She lives in [place]. She has no travel or sick contacts. REVIEW OF SYSTEMS: All negative except as noted above in the history of present illness. PHYSICAL EXAM: Vital Signs: Temperature 37, heart rate 80, respiratory rate 20 , blood pressure 134/50, oxygen saturation 94% on room air. In general, she is awake, not in distress. Neurologic: She is oriented x3. Follows all commands. HEENT: There is no conjunctival hemorrhage. Oropharynx without lesions. Neck: Supple without mass. Heart: Regular rate and rhythm without murmurs, rubs, or gallops. Lungs: Clear to auscultation bilaterally. Abdomen : Soft, nontender, nondistended. There are bowel sounds present. Skin: Between left knee and ankle, there is diffuse erythema which is nonblanching with warmth, tenderness, and slight edema. Musculoskeletal: There is no left knee or ankle effusion. DIAGNOSTIC STUDIES/LAB DATA: White blood cell count 11 down from 33, creatinine is 0.6, CRP 300. IMPRESSION: 1. Encephalopathy due to sepsis, was present on admission and resolved. 2. Left leg cellulitis due to group A Streptococcus, should expect slow improvement over the next few days and weeks. 3. Asymptomatic bacteriuria with Escherichia coli in the setting of nephrolithiasis and recurrent urinary tract infection. 4. Type 2 diabetes. RECOMMENDATIONS: Ancef 1 g IV every 8 hours. Continue to keep the leg elevated. I discussed with her the pain, swelling, and redness in her leg will persist for few days and hopefully slowly improve and over 3 to 4 weeks should get back to the leg she remembers. Please see impressions and recommendations outlined above. Thanks for asking me to Ms. Arthur in consultation. [id number]/[facility] #: [id number] BEHZAD
[2018-04-15] MEDS: Senna TAB PO PRN (20:18)
[2018-04-15] MEDS: Docusate CAP* 100 MG PO PRN (20:19)
[2018-04-15] MEDS: Ibuprofen TAB* 400 MG PO PRN (20:19)
[2018-04-15] MEDS: ICAPS PO SCH (20:19)
[2018-04-16] MEDS: oxyCODONE/Acetamin 5/325 MG* TAB PO PRN ×4 (04:22→23:47)
[2018-04-16] MEDS: Heparin VIAL(*) 5000 UNITS/ML VIAL (FIVE THOUSAND) SUBCUT SCH ×3 (05:28→20:31)
[2018-04-16] MEDS ORDERED: Vancomycin Trough Check NOTE FOLLOW UP ONE (05:30)
[2018-04-16 06:58] LABS: ABS Basophils 0 10^3/ul (0-0.2); ABS Eosinophils 0.2 10^3/ul (0-0.6); ABS Lymphocytes 0.8 10^3/ul (1.0-4.8); ABS Neutrophils 7.9 10^3/ul (1.5-7.7); ABS Nucleated RBC 0 10^3/ul; Eosinophil % 2.1 %; Hematocrit 32 % (35-47); Hemoglobin 10.5 g/dl (12.0-16.0); Lymphocyte % 7.6 %; Mean Corpuscular HGB Conc 33 g/dl (31-36); Mean Corpuscular Hemoglobin 28 pg (27-31); Mean Corpuscular Volume 84 fL (80-97); Mean Platelet Volume 8.6 fL (7.4-10.4); Nucleated Red Blood Cells % 0; Platelet Count 218 10^3/ul (150-450); Red Blood Count 3.78 10^6/ul (4.00-5.40); Red Cell Distribution Width 15 % (10.5-15); White Blood Count 9.9 10^3/ul (3.5-10.8)
[2018-04-16 07:23] LABS: BUN/Creatinine Ratio 20.3 (8-20); EGFR African American 95.3 (>60); EGFR Non-African American 78.8 (>60); Potassium 4.1 mmol/L (3.5-5.0)
[2018-04-16] MEDS: Lisinopril TAB* 5 MG PO SCH (09:08)
[2018-04-16] MEDS: PTO:Potassium Citrate (NF) 10 MEQ TAB PO SCH ×2 (09:09→20:29)
[2018-04-16] MEDS: Insulin LISPRO* 1 UNITS UNIT SUBCUT SCH ×3 (09:09→17:34)
[2018-04-16] MEDS: PTO: Solifenacin(NF) 10 MG TAB PO SCH (09:10)
--- NOTE | 2018-04-16 09:58 | PN ---
Subjective Date of Service: 04/16/18 Interval History: MAK better with the 2 percosets instead of 1 Afebrile, no acute events overnights Leukocytosis resolved. Erythema still to margins. IV access was lost Objective Active Medications: Acetaminophen (Tylenol Tab*) 650 mg PO Q6H PRN PRN Reason: pain/fever Last Admin: 04/15/18 11:16 Dose: 650 mg Dextrose (D50w Syringe 50 Ml*) 12.5 gm IV PUSH .FOR FS < 60 - SS PRN PRN Reason: FS < 60 Docusate Sodium (Colace Cap*) 100 mg PO BID PRN PRN Reason: CONSTIPATION Last Admin: 04/15/18 20:19 Dose: 100 mg Heparin Sodium (Porcine) (Heparin Vial(*)) 5,000 units SUBCUT Q8HR [facility] Last Admin: 04/16/18 05:28 Dose: 5,000 units Sodium Chloride (Ns 0.9% 1000 Ml) 1,000 mls @ 75 mls/hr IV PER RATE [facility] Last Admin: 04/15/18 16:58 Dose: 75 mls/hr Cefazolin Sodium 1 gm/ Sodium (Chloride) 50 mls @ 200 mls/hr IVPB Q8H [facility] Last Admin: 04/15/18 22:23 Dose: 200 mls/hr Ibuprofen (Motrin Tab*) 400 mg PO Q6H PRN PRN Reason: PAIN Last Admin: 04/15/18 20:19 Dose: 400 mg Insulin Human Lispro (Humalog*) 0 units SUBCUT AC [facility]; Protocol Last Admin: 04/16/18 09:09 Dose: 6 units Lisinopril (Prinivil Tab*) 2.5 mg PO DAILY [facility] Last Admin: 04/16/18 09:08 Dose: 2.5 mg Pto: [Icaps Tablet] 1 each PO BEDTIME [facility] Last Admin: 04/15/18 20:19 Dose: 1 each Oxycodone/Acetaminophen (Percocet 5/325 Tab*) 2 tab PO Q6H PRN PRN Reason: PAIN Last Admin: 04/16/18 04:22 Dose: 2 tab Potassium Citrate (Urocit-K 10 (Nf)) 20 meq PO BID [facility] Last Admin: 04/16/18 09:09 Dose: 20 meq Senna (Senokot Tab*) 1 tab PO BEDTIME PRN PRN Reason: CONSTIPATION Last Admin: 04/15/18 20:18 Dose: 1 tab Solifenacin (Vesicare(Nf)) 10 mg PO DAILY [facility] Last Admin: 04/16/18 09:10 Dose: 10 mg Vital Signs - 8 hr 04/16/18 04/16/18 04/16/18 03:14 04:22 07:00 Temperature 97.3 F Pulse Rate 70 Respiratory 16 16 18 Rate Blood Pressure 105/50 (mmHg) O2 Sat by Pulse 96 Oximetry 04/16/18 07:19 Temperature 97.9 F Pulse Rate 71 Respiratory 18 Rate Blood Pressure 109/41 (mmHg) O2 Sat by Pulse 94 Oximetry Oxygen Devices in Use Now: None Appearance: NAD, sitting in chair. Ears/Nose/Mouth/Throat: NL Teeth, Lips, Gums Neck: NL Appearance and Movements; NL JVP Respiratory: Symmetrical Chest Expansion and Respiratory Effort, Clear to Auscultation Cardiovascular: NL Sounds; No Murmurs; No JVD, RRR Abdominal: NL Sounds; No Tenderness; No Distention Extremities: - - left leg with confluent erythema to margins, warmth(but less so ), 1+ edema Skin: - - left leg with confluent erythema to margins, warmth(but less so) Neurological: Alert and Oriented x 3 Result Diagrams: 04/17/18 05:41 04/17/18 05:41 Additional Lab and Data: Laboratory Results - last 24 hr 04/15/18 04/15/18 04/15/18 05:35 05:35 07:47 WBC 11.4 H RBC 4.12 Hgb 11.2 L Hct 35 MCV 84 MCH 27 MCHC 33 RDW 15 Plt Count 221 MPV 8.4 Neut % (Auto) 85.7 Lymph % (Auto) 6.3 [place] % (Auto) 7.0 Eos % (Auto) 0.7 Baso % (Auto) 0.3 Absolute Neuts (auto) 9.7 H Absolute Lymphs (auto) 0.7 L Absolute Monos (auto) 0.8 Absolute Eos (auto) 0.1 Absolute Basos (auto) 0 Absolute Nucleated RBC 0 Nucleated RBC % 0 ESR 74 H Sodium 136 Potassium 3.9 Chloride 107 Carbon Dioxide 22 Anion Gap 7 BUN 15 Creatinine 0.66 Est GFR ( Amer) 108.8 Est GFR (Non-Af Amer) 89.9 BUN/Creatinine Ratio 22.7 H Glucose 152 H POC Glucose (mg/dL) 140 H Calcium 8.0 L C-Reactive Protein 302.59 H 04/15/18 04/15/18 11:59 16:50 WBC RBC Hgb Hct MCV MCH MCHC RDW Plt Count MPV Neut % (Auto) Lymph % (Auto) [place] % (Auto) Eos % (Auto) Baso % (Auto) Absolute Neuts (auto) Absolute Lymphs (auto) Absolute Monos (auto) Absolute Eos (auto) Absolute Basos (auto) Absolute Nucleated RBC Nucleated RBC % ESR Sodium Potassium Chloride Carbon Dioxide Anion Gap BUN Creatinine Est GFR ( Amer) Est GFR (Non-Af Amer) BUN/Creatinine Ratio Glucose POC Glucose (mg/dL) 162 H 181 H Calcium C-Reactive Protein Microbiology and Other Data: Microbiology 04/13/18 15:30 Urine Urine Culture - Final Escherichia Coli Escherichia Coli#2 04/13/18 12:23 Blood Venous Aerobic Blood Culture - Preliminary No Growth Day 2 04/13/18 12:23 Blood Venous Anaerobic Blood Culture - Preliminary No Growth Day 2 04/13/18 12:23 Blood Venous Blood Culture - Preliminary No Growth Day 2 04/13/18 12:06 Blood Venous Aerobic Blood Culture - Preliminary No Growth Day 2 04/13/18 12:06 Blood Venous Anaerobic Blood Culture - Preliminary No Growth Day 2 04/14/18 10:08 Nasal Influenza Types A,B Antigen - Final Specimen received for Influenza A/B Molecular testing Assess/Plan/Problems-Billing Assessment: 67 yo female H NIDDM, super morbid obesity, frequent kidney stones and UTIs presents with sepsis(fever 103.3, WBC 33.8, tachycardia) secondary to left leg cellulitis. UA suspicious for UTI. Vancomycin/Ceftriaxone and now cefazolin. - Patient Problems (1) Cellulitis Current Visit: Yes Status: Acute Code(s): L03.90 - CELLULITIS, UNSPECIFIED SNOMED Code(s): 976511249 Comment: Appreciate ID recs. Suspicius for streptococcal cellulitis and switched back to cefazolin but then lost IV access so now keflex po 500 TID per ID. f/u blood cultures NGTD x2. nonpurulent. day 4 abx (2) Sepsis Current Visit: No Status: Acute Priority: High Comment: likely 2/2 Cellulitis and UTI.Plan as above. (3) UTI (urinary tract infection) Current Visit: Yes Status: Acute Comment: ecoli (two strains), day 4 abx. (4) DVT prophylaxis Current Visit: No Status: Acute Priority: Medium Code(s): EYU9551 - SNOMED Code(s): 630888791 Comment: heparin 5000 TID (5) Diabetes Current Visit: No Status: Chronic Priority: Medium Code(s): E11.9 - TYPE 2 DIABETES MELLITUS WITHOUT COMPLICATIONS SNOMED Code(s): 75658910 Comment: holding home metformin, glipizide. SSI poc qachs last A1C reportedly 6.4 in Feb 2018 Status and Disposition: medicine inpatient.
[2018-04-16] MEDS: ceFAZolin 1 GM ADVAN(*) 1 GM in NS 0.9% 50 ML* 50 ML IVPB SCH (10:39)
--- NOTE | 2018-04-16 10:53 | PN ---
Progress Note - Progress Note Date of Service: 04/16/18 SOAP: Subjective: CC; cellulitis HPI: 67 year old diabetic with left leg cellulitis. Pain better at rest, continues with weight bearing in the area that is red. Headache gone. Feels wheezy, using IS. No cough or shortness of breath. Appetite is good. Lost IV access today. Objective: Vital Signs Temp 36.6 C 04/16/18 07:19 Pulse 71 04/16/18 07:19 Resp 18 04/16/18 07:19 BP 109/41 04/16/18 07:19 Pulse Ox 94 04/16/18 07:19 Intake & Output 04/15/18 04/16/18 04/16/18 18:59 06:59 18:59 Intake Total 3522 841 240 Balance 3522 841 240 Intake: IV Fluids 1897 791 NS (0.9%) 1897 791 IVPB 875 50 ABX - CEFAZOLIN 55 50 vancomycin 820 Oral 750 0 240 Other: # Voids 0 Gen:awake, no distress HEENT: no thrush Heart:RRR no murmur Lungs:BL expiratory wheeze, no rales Abd:+BS NTND soft Skin: Left lower leg erythema and warmth from knee to ankle MSK: no Left knee or ankle effusion or tenderness Laboratory Results - last 24 hr 04/15/18 04/15/18 04/16/18 11:59 16:50 06:21 WBC 9.9 RBC 3.78 L Hgb 10.5 L Hct 32 L MCV 84 MCH 28 MCHC 33 RDW 15 Plt Count 218 MPV 8.6 Neut % (Auto) 79.8 Lymph % (Auto) 7.6 [place] % (Auto) 10.0 Eos % (Auto) 2.1 Baso % (Auto) 0.5 Absolute Neuts (auto) 7.9 H Absolute Lymphs (auto) 0.8 L Absolute Monos (auto) 1.0 H Absolute Eos (auto) 0.2 Absolute Basos (auto) 0 Absolute Nucleated RBC 0 Nucleated RBC % 0 Sodium Potassium Chloride Carbon Dioxide Anion Gap BUN Creatinine Est GFR ( Amer) Est GFR (Non-Af Amer) BUN/Creatinine Ratio Glucose POC Glucose (mg/dL) 162 H 181 H Calcium 04/16/18 04/16/18 06:24 07:11 WBC RBC Hgb Hct MCV MCH MCHC RDW Plt Count MPV Neut % (Auto) Lymph % (Auto) [place] % (Auto) Eos % (Auto) Baso % (Auto) Absolute Neuts (auto) Absolute Lymphs (auto) Absolute Monos (auto) Absolute Eos (auto) Absolute Basos (auto) Absolute Nucleated RBC Nucleated RBC % Sodium 135 Potassium 4.1 Chloride 108 Carbon Dioxide 23 Anion Gap 4 BUN 15 Creatinine 0.74 Est GFR ( Amer) 95.3 Est GFR (Non-Af Amer) 78.8 BUN/Creatinine Ratio 20.3 H Glucose 199 H POC Glucose (mg/dL) 206 H Calcium 8.0 L Assessment: 1. Left leg non purulent cellulitis due to Grp A Strep; improving 2. leukocytosis due to #1, improving 3. T2DM Plan: 1. change abx to cephalexin 500 mg po tid (ordered) and continue leg elevation; expect continued slow improvement over the next few weeks. Discussed with Dr Levine
[2018-04-16] MEDS: Cephalexin CAP* 500 MG PO SCH ×3 (11:22→20:30)
[2018-04-16] MEDS: Ibuprofen TAB* 400 MG PO PRN (17:03)
[2018-04-16] MEDS: Docusate CAP* 100 MG PO PRN (20:30)
[2018-04-16] MEDS: Senna TAB PO PRN (20:30)
[2018-04-16] MEDS: ICAPS PO SCH (20:30)
[2018-04-17] MEDS: oxyCODONE/Acetamin 5/325 MG* TAB PO PRN ×3 (05:46→17:35)
[2018-04-17] MEDS: Heparin VIAL(*) 5000 UNITS/ML VIAL (FIVE THOUSAND) SUBCUT SCH ×3 (05:47→20:58)
[2018-04-17 06:00] LABS: ABS Basophils 0 10^3/ul (0-0.2); ABS Eosinophils 0.4 10^3/ul (0-0.6); ABS Lymphocytes 1.1 10^3/ul (1.0-4.8); ABS Monocytes 1.4 10^3/ul (0-0.8); ABS Neutrophils 7.9 10^3/ul (1.5-7.7); ABS Nucleated RBC 0 10^3/ul; Eosinophil % 3.6 %; Hematocrit 33 % (35-47); Hemoglobin 10.7 g/dl (12.0-16.0); Lymphocyte % 9.9 %; Mean Corpuscular HGB Conc 32 g/dl (31-36); Mean Corpuscular Hemoglobin 27 pg (27-31); Mean Corpuscular Volume 84 fL (80-97); Mean Platelet Volume 7.8 fL (7.4-10.4); Nucleated Red Blood Cells % 0; Platelet Count 264 10^3/ul (150-450); Red Blood Count 3.92 10^6/ul (4.00-5.40); Red Cell Distribution Width 15 % (10.5-15); White Blood Count 10.8 10^3/ul (3.5-10.8)
[2018-04-17 06:24] LABS: BUN/Creatinine Ratio 21.5 (8-20); Calcium 8.5 mg/dL (8.6-10.3); EGFR African American 110.7 (>60); EGFR Non-African American 91.5 (>60); Potassium 4.4 mmol/L (3.5-5.0)
[2018-04-17] MEDS ORDERED: Magnesium CITRATE* 300 ML BTL PO ONE ×2 (07:50→18:36)
--- NOTE | 2018-04-17 08:32 | PN ---
Subjective Date of Service: 04/17/18 Interval History: Leg feels about the same. staying on top of the MAK. no BM since 04/12. some pain in leg with ambulation. no wheezing, chest pain, abdominal pain. Objective Active Medications: Acetaminophen (Tylenol Tab*) 650 mg PO Q6H PRN PRN Reason: pain/fever Last Admin: 04/15/18 11:16 Dose: 650 mg Cephalexin HCl (Keflex Cap*) 500 mg PO TID REPLACED BY [facility] Last Admin: 04/16/18 20:30 Dose: 500 mg Dextrose (D50w Syringe 50 Ml*) 12.5 gm IV PUSH .FOR FS < 60 - SS PRN PRN Reason: FS < 60 Docusate Sodium (Colace Cap*) 100 mg PO BID PRN PRN Reason: CONSTIPATION Last Admin: 04/16/18 20:30 Dose: 100 mg Heparin Sodium (Porcine) (Heparin Vial(*)) 5,000 units SUBCUT Q8HR [facility]PL[facility] Last Admin: 04/17/18 05:47 Dose: 5,000 units Ibuprofen (Motrin Tab*) 400 mg PO Q6H PRN PRN Reason: PAIN Last Admin: 04/16/18 17:03 Dose: 400 mg Insulin Human Lispro (Humalog*) 0 units SUBCUT AC [facility]PLACED [facility]; Protocol Last Admin: 04/16/18 17:34 Dose: 3 units Lisinopril (Prinivil Tab*) 2.5 mg PO DAILY [facility] Last Admin: 04/16/18 09:08 Dose: 2.5 mg Pto: [Icaps Tablet] 1 each PO BEDTIME [facility]PL[facility] Last Admin: 04/16/18 20:30 Dose: 1 each Oxycodone/Acetaminophen (Percocet 5/325 Tab*) 2 tab PO Q6H PRN PRN Reason: PAIN Last Admin: 04/17/18 05:46 Dose: 2 tab Polyethylene Glycol/Electrolytes (Miralax*) 17 gm PO DAILY [facility]PL[facility] Potassium Citrate (Urocit-K 10 (Nf)) 20 meq PO BID [facility]PL[facility] Last Admin: 04/16/18 20:29 Dose: 20 meq Senna (Senokot Tab*) 1 tab PO BEDTIME PRN PRN Reason: CONSTIPATION Last Admin: 04/16/18 20:30 Dose: 1 tab Solifenacin (Vesicare(Nf)) 10 mg PO DAILY [facility] Last Admin: 04/16/18 09:10 Dose: 10 mg Vital Signs - 8 hr 04/17/18 04/17/18 04/17/18 01:58 02:49 05:46 Temperature 97.7 F Pulse Rate 63 Respiratory 18 18 18 Rate Blood Pressure 113/50 (mmHg) O2 Sat by Pulse 94 Oximetry 04/17/18 07:22 Temperature Pulse Rate Respiratory 18 Rate Blood Pressure (mmHg) O2 Sat by Pulse Oximetry Oxygen Devices in Use Now: None Appearance: NAD Eyes: No Scleral Icterus Neck: NL Appearance and Movements; NL JVP Respiratory: Symmetrical Chest Expansion and Respiratory Effort, Clear to Auscultation Cardiovascular: NL Sounds; No Murmurs; No JVD Abdominal: NL Sounds; No Tenderness; No Distention, No Hepatosplenomegaly Extremities: - - left leg with confluent erythema (within marked boundaries. , slight warmth. 1+ edema Skin: - - left leg with confluent erythema (within marked boundaries. , slight warmth. Neurological: Alert and Oriented x 3 Result Diagrams: 04/17/18 05:41 04/17/18 05:41 Additional Lab and Data: Laboratory Results - last 24 hr 04/16/18 04/16/18 04/17/18 11:26 17:06 05:41 WBC 10.8 RBC 3.92 L Hgb 10.7 L Hct 33 L MCV 84 MCH 27 MCHC 32 RDW 15 Plt Count 264 MPV 7.8 Neut % (Auto) 73.2 Lymph % (Auto) 9.9 [place] % (Auto) 12.9 Eos % (Auto) 3.6 Baso % (Auto) 0.4 Absolute Neuts (auto) 7.9 H Absolute Lymphs (auto) 1.1 Absolute Monos (auto) 1.4 H Absolute Eos (auto) 0.4 Absolute Basos (auto) 0 Absolute Nucleated RBC 0 Nucleated RBC % 0 Sodium Potassium Chloride Carbon Dioxide Anion Gap BUN Creatinine Est GFR ( Amer) Est GFR (Non-Af Amer) BUN/Creatinine Ratio Glucose POC Glucose (mg/dL) 151 H 162 H Calcium 04/17/18 04/17/18 05:41 07:00 WBC RBC Hgb Hct MCV MCH MCHC RDW Plt Count MPV Neut % (Auto) Lymph % (Auto) [place] % (Auto) Eos % (Auto) Baso % (Auto) Absolute Neuts (auto) Absolute Lymphs (auto) Absolute Monos (auto) Absolute Eos (auto) Absolute Basos (auto) Absolute Nucleated RBC Nucleated RBC % Sodium 136 Potassium 4.4 Chloride 105 Carbon Dioxide 26 Anion Gap 5 BUN 14 Creatinine 0.65 Est GFR ( Amer) 110.7 Est GFR (Non-Af Amer) 91.5 BUN/Creatinine Ratio 21.5 H Glucose 146 H POC Glucose (mg/dL) 160 H Calcium 8.5 L Microbiology and Other Data: Microbiology 04/13/18 12:23 Blood Venous Aerobic Blood Culture - Preliminary No Growth Day 3 04/13/18 12:23 Blood Venous Anaerobic Blood Culture - Preliminary No Growth Day 3 04/13/18 12:23 Blood Venous Blood Culture - Preliminary No Growth Day 3 04/13/18 12:06 Blood Venous Aerobic Blood Culture - Preliminary No Growth Day 3 04/13/18 12:06 Blood Venous Anaerobic Blood Culture - Preliminary No Growth Day 3 04/13/18 15:30 Urine Urine Culture - Final Escherichia Coli Escherichia Coli#2 04/14/18 10:08 Nasal Influenza Types A,B Antigen - Final Specimen received for Influenza A/B Molecular testing Assess/Plan/Problems-Billing Assessment: 67 yo female PMH NIDDM, super morbid obesity, frequent kidney stones and UTIs presents with sepsis(fever 103.3, WBC 33.8, tachycardia) secondary to left leg cellulitis. UA suspicious for UTI. Vancomycin/Ceftriaxone -> cefazolin -> keflex - Patient Problems (1) Cellulitis Current Visit: Yes Status: Acute Code(s): L03.90 - CELLULITIS, UNSPECIFIED SNOMED Code(s): 019595020 Comment: Appreciate ID recs. Suspicius for streptococcal cellulitis and switched back to cefazolin but then lost IV access so now keflex po 500 TID per ID. f/u blood cultures NGTD x3. nonpurulent. day 5 abx add on CRP (2) Sepsis Current Visit: No Status: Acute Priority: High Comment: likely 2/2 Cellulitis and UTI.Plan as above. (3) UTI (urinary tract infection) Current Visit: Yes Status: Acute Comment: ecoli (two strains), day 5 abx. (4) DVT prophylaxis Current Visit: No Status: Acute Priority: Medium Code(s): [id number] - SNOMED Code(s): 124173493 Comment: heparin 5000 TID (5) Diabetes Current Visit: No Status: Chronic Priority: Medium Code(s): E11.9 - TYPE 2 DIABETES MELLITUS WITHOUT COMPLICATIONS SNOMED Code(s): 04297253 Comment: holding home metformin, glipizide. SSI poc qachs last A1C reportedly 6.4 in Feb 2018 Status and Disposition: medicine inpatient. Possible discharge later today if is ambulating well. PT has been ordered.
[2018-04-17] MEDS: Insulin LISPRO* 1 UNITS UNIT SUBCUT SCH ×3 (08:53→17:36)
[2018-04-17 09:20] LABS: C Reactive Protein 277.16 mg/L (<8.01)
[2018-04-17] MEDS: Lisinopril TAB* 5 MG PO SCH (10:09)
[2018-04-17] MEDS: Cephalexin CAP* 500 MG PO SCH ×3 (10:09→20:58)
[2018-04-17] MEDS: Docusate CAP* 100 MG PO PRN ×2 (10:09→21:04)
[2018-04-17] MEDS: PTO:Potassium Citrate (NF) 10 MEQ TAB PO SCH ×2 (10:10→20:58)
[2018-04-17] MEDS: PTO: Solifenacin(NF) 10 MG TAB PO SCH (10:10)
--- NOTE | 2018-04-17 10:26 | PN ---
Progress Note - Progress Note Date of Service: 04/17/18 SOAP: Subjective: CC; cellulitis HPI: 67 year old diabetic with left leg cellulitis. Pain better at rest, stiff but less painful when walking. Headache gone with pain medicine. Objective: Vital Signs Temp 36.7 C 04/17/18 09:38 Pulse 73 04/17/18 09:38 Resp 12 04/17/18 09:38 BP 133/54 04/17/18 09:38 Pulse Ox 93 04/17/18 09:38 Intake & Output 04/16/18 04/17/18 04/17/18 18:59 06:59 18:59 Intake Total 940 0 480 Balance 940 0 480 Intake: Oral 940 0 480 Other: Estimated Void Large # Bowel Movements 0 # Voids 0 Gen:awake, no distress HEENT: no thrush Heart:RRR no murmur Lungs:BL expiratory wheeze, no rales Abd:+BS NTND soft Skin: Left lower leg erythema and warmth from knee to ankle; medial thigh erythema fading MSK: no Left knee or ankle effusion or tenderness Laboratory Results - last 24 hr 04/16/18 04/16/18 04/17/18 11:26 17:06 05:41 WBC 10.8 RBC 3.92 L Hgb 10.7 L Hct 33 L MCV 84 MCH 27 MCHC 32 RDW 15 Plt Count 264 MPV 7.8 Neut % (Auto) 73.2 Lymph % (Auto) 9.9 Esmeralda % (Auto) 12.9 Eos % (Auto) 3.6 Baso % (Auto) 0.4 Absolute Neuts (auto) 7.9 H Absolute Lymphs (auto) 1.1 Absolute Monos (auto) 1.4 H Absolute Eos (auto) 0.4 Absolute Basos (auto) 0 Absolute Nucleated RBC 0 Nucleated RBC % 0 Sodium Potassium Chloride Carbon Dioxide Anion Gap BUN Creatinine Est GFR ( Amer) Est GFR (Non-Af Amer) BUN/Creatinine Ratio Glucose POC Glucose (mg/dL) 151 H 162 H Calcium C-Reactive Protein 04/17/18 04/17/18 05:41 07:00 WBC RBC Hgb Hct MCV MCH MCHC RDW Plt Count MPV Neut % (Auto) Lymph % (Auto) Esmeralda % (Auto) Eos % (Auto) Baso % (Auto) Absolute Neuts (auto) Absolute Lymphs (auto) Absolute Monos (auto) Absolute Eos (auto) Absolute Basos (auto) Absolute Nucleated RBC Nucleated RBC % Sodium 136 Potassium 4.4 Chloride 105 Carbon Dioxide 26 Anion Gap 5 BUN 14 Creatinine 0.65 Est GFR ( Amer) 110.7 Est GFR (Non-Af Amer) 91.5 BUN/Creatinine Ratio 21.5 H Glucose 146 H POC Glucose (mg/dL) 160 H Calcium 8.5 L C-Reactive Protein 277.16 H Assessment: 1. Left leg non purulent cellulitis due to Grp A Strep; improving 2. leukocytosis due to #1, improving 3. T2DM 4. elevated CRP due to #1, improving Plan: 1. continue cephalexin 500 mg po tid (ordered) and leg elevation; ambulate a little more today. Hold on compression until leg is a little less painful. Discussed with Dr Levine
[2018-04-17] MEDS: Polyethylene Glycol 3350* 17 GM PACKET PO SCH (10:53)
[2018-04-17] MEDS ORDERED: Furosemide TAB* 20 MG PO ONE (16:35)
[2018-04-17] MEDS: ICAPS PO SCH (20:58)
[2018-04-17] MEDS: Senna TAB PO PRN (21:04)
--- NOTE | 2018-04-17 21:19 | DS ---
DISCHARGE SUMMARY: DATE OF ADMISSION: 04/13/18 DATE OF DISCHARGE: 04/18/18 ADMITTING PROVIDER: Yessica Patterson NP. ATTENDING PHYSICIAN ON THE DAY OF DISCHARGE: Dillon Levine MD. PRIMARY CARE PHYSICIAN: Dr. Ramya Horn. CHIEF COMPLAINT: Nausea, vomiting, altered mental status. PRINCIPAL DIAGNOSES: 1. Left leg cellulitis, likely group A streptococcal. 2. Sepsis, secondary to cellulitis. HISTORY OF PRESENT ILLNESS/HOSPITAL COURSE: Steve Arthur is a 67-year-old female with past medical history of [id number] diabetes mellitus, frequent urinary tract infections with kidney stones, who presented with nausea and vomiting the night prior and then with altered mental status. Please see H and P for full details. Her daughter had noted that she seems confused after having nausea and vomiting the night prior and was brought to the [facility] for further evaluation. She initially had a white blood cell count of 33.8 , lactic acid of 3.4, CRP of 184, fever of 102, and was noted to have warmth, erythema, and tenderness to the left lower extremity and was referred to hospitalist service for admission for sepsis secondary to cellulitis. She had a duplex Doppler which demonstrated no DVT of the left leg. She initially also had tachycardia between 95 and 100. She also had urinalysis which showed positive nitrites, 2+ blood, 1+ leukocyte esterase, 3+ wbc's, 3+ bacteria. The urine culture ultimately grew 2 separate species of E. coli, which were pansensitive. In the emergency room, she had a dose of vancomycin, cefepime, and Flagyl and was continued on vancomycin, and then once the UA came back _ on hospital day #2, it was changed from vancomycin to cefazolin, but it seemed like the rash got worse about 12 hours after the last vancomycin dose, so we switched back to vancomycin and ID was consulted on hospital day #3 when she was still very erythematous and painful. Her fever currently improved. Last temperature was 100.0 on 04/16/18 at 5 p.m. Her CRP also yifan and then fell 184 to 302, then 277 on 04/17/18. Her blood cultures have been no growth for 4 days and her leukocytosis has resolved down to 10.8 on 04/17/18. Course was also complicated by intermittent gripping headache, which on 04/15/18 was 10 /10 and very severe and she improved with doubling the initial Percocet to 2 tabs every 6 hours. Her course was also complicated by constipation, and she was given multiple bowel meds including mag citrate on 04/17/18, which she was initially refusing. Dr. Serjio Hoffmann recommended return to cefazolin and then Keflex, which she has got in the hospital on 04/16/18 and she has got followup with him within the next 10 days. She was very anxious about discharge given the continued erythema in her left leg and this was postponed given that she still not had a bowel movement until tomorrow. She is also going to be given a small dose of Lasix as she expressed some shortness of breath with ambulation today, had elevated BNP of 367 on admission, was given IV fluids bolus for sepsis, she was without rales or objective evidence of hypoxia. She should follow up with Dr. Ramya Horn and discuss possible echocardiogram as an outpatient. DISCHARGE MEDICATIONS: Include: 1. Vitamin B2, A, C, E, lutein, and zeaxanthin 1 tab p.o. daily. 2. Docusate 100 mg p.o. b.i.d. (new). 3. Keflex 500 mg t.i.d. for 10 more days, total course of 15 days or until otherwise decided by Dr. Serjio Hoffmann in outpatient followup (new). 4. Oxycodone 1-2 tabs q.6 hours p.r.n. for 20 tablets. 5. Potassium citrate 20 mEq p.o. b.i.d. 6. Senna 1 tab p.o. at bedtime p.r.n. for 20 tablets (new). 7. VESIcare 10 mg p.o. daily. 8. Aspirin 81 mg daily. 9. Glipizide 10 mg p.o. b.i.d. 10. Lisinopril 2.5 mg p.o. daily. 11. Metformin 1000 mg p.o. b.i.d. 12. MiraLAX 17 g p.o. daily (new). FOLLOWUP: Please follow up with Dr. Ramya Horn, PCP within 7 days, Dr. Serjio Hoffmann within 10 days. She was alerted that she will have continued pain, erythema and warmth to this left leg over a few weeks given the nature of the streptococcal cellulitis. TIME SPENT ON DISCHARGE: 40 minutes. [id number]/[facility] #: [id number] MTDBoris
[2018-04-18] MEDS: oxyCODONE/Acetamin 5/325 MG* TAB PO PRN ×2 (01:36→11:21)
[2018-04-18] MEDS: Heparin VIAL(*) 5000 UNITS/ML VIAL (FIVE THOUSAND) SUBCUT SCH ×3 (06:00→20:21)
[2018-04-18 06:06] LABS: ABS Basophils 0.1 10^3/ul (0-0.2); ABS Eosinophils 0.4 10^3/ul (0-0.6); ABS Lymphocytes 1.7 10^3/ul (1.0-4.8); ABS Monocytes 1.5 10^3/ul (0-0.8); ABS Neutrophils 8.4 10^3/ul (1.5-7.7); ABS Nucleated RBC 0 10^3/ul; Hematocrit 31 % (35-47); Lymphocyte % 13.9 %; Mean Corpuscular HGB Conc 33 g/dl (31-36); Mean Corpuscular Hemoglobin 27 pg (27-31); Mean Corpuscular Volume 83 fL (80-97); Mean Platelet Volume 7.7 fL (7.4-10.4); Nucleated Red Blood Cells % 0; Platelet Count 297 10^3/ul (150-450); Red Blood Count 3.68 10^6/ul (4.00-5.40); Red Cell Distribution Width 15 % (10.5-15); White Blood Count 12.1 10^3/ul (3.5-10.8)
[2018-04-18 06:24] LABS: BUN/Creatinine Ratio 17.7 (8-20); Calcium 8.7 mg/dL (8.6-10.3); EGFR African American 116.9 (>60); EGFR Non-African American 96.6 (>60); Potassium 4.3 mmol/L (3.5-5.0)
[2018-04-18] MEDS ORDERED: Polyethylene Glycol 3350* 17 GM PACKET PO SCH (09:00)
[2018-04-18] MEDS: Lisinopril TAB* 5 MG PO SCH (11:10)
[2018-04-18] MEDS: Cephalexin CAP* 500 MG PO SCH ×3 (11:10→20:15)
[2018-04-18] MEDS: Insulin LISPRO* 1 UNITS UNIT SUBCUT SCH ×3 (11:11→16:29)
[2018-04-18] MEDS: Polyethylene Glycol 3350* 17 GM PACKET PO SCH (11:11)
[2018-04-18] MEDS: PTO: Solifenacin(NF) 10 MG TAB PO SCH (11:11)
[2018-04-18] MEDS: PTO:Potassium Citrate (NF) 10 MEQ TAB PO SCH ×2 (11:11→20:16)
[2018-04-18] MEDS ORDERED: Magnesium Hydroxide LIQ* 30 ML UDC PO PRN (19:19)
[2018-04-18] MEDS: Senna TAB PO PRN (20:15)
[2018-04-18] MEDS: Docusate CAP* 100 MG PO PRN (20:15)
[2018-04-18] MEDS: ICAPS PO SCH (20:16)
[2018-04-18] MEDS: Ibuprofen TAB* 400 MG PO PRN (20:20)
[2018-04-18] MEDS ORDERED: Lisinopril TAB* 5 MG PO ONE (20:54)
[2018-04-18] MEDS ORDERED: Lisinopril TAB* 5 MG ONE (21:06)
[2018-04-19] MEDS: Ibuprofen TAB* 400 MG PO PRN ×2 (03:46→12:24)
[2018-04-19] MEDS: Heparin VIAL(*) 5000 UNITS/ML VIAL (FIVE THOUSAND) SUBCUT SCH (05:57)
[2018-04-19 06:16] LABS: Hematocrit 32 % (35-47); Hemoglobin 10.5 g/dl (12.0-16.0); Mean Corpuscular HGB Conc 33 g/dl (31-36); Mean Corpuscular Hemoglobin 27 pg (27-31); Mean Corpuscular Volume 84 fL (80-97); Platelet Count 361 10^3/ul (150-450); Red Blood Count 3.85 10^6/ul (4.00-5.40); Red Cell Distribution Width 14 % (10.5-15); White Blood Count 12.8 10^3/ul (3.5-10.8)
[2018-04-19 06:40] LABS: BUN/Creatinine Ratio 20.6 (8-20); Calcium 9.1 mg/dL (8.6-10.3); EGFR African American 114.8 (>60); EGFR Non-African American 94.8 (>60); Potassium 4.5 mmol/L (3.5-5.0)
[2018-04-19 06:54] LABS: ABS Basophils 0.1 10^3/ul (0-0.2); ABS Eosinophils 0.5 10^3/ul (0-0.6); ABS Lymphocytes 1.5 10^3/ul (1.0-4.8); ABS Monocytes 1.4 10^3/ul (0-0.8); ABS Neutrophils 9.4 10^3/ul (1.5-7.7); ABS Nucleated RBC 0 10^3/ul
[2018-04-19 07:05] LABS: ABS Neutrophils 9.1 10^3/ul (1.5-7.7); Immature Granulocytes 8 % (0-9); Lymphocytes % 16 %; Monocytes % 8 %; Myelocytes % 5 % (0-1); Neutrophil % 63 %; Variant Lymph % 3 % (0-6)
[2018-04-19 07:06] LABS: ABS Basophils 0.1 10^3/ul (0-0.2); ABS Eosinophils 0.1 10^3/ul (0-0.6)
[2018-04-19] MEDS: Lisinopril TAB* 5 MG PO SCH (08:46)
[2018-04-19] MEDS: Insulin LISPRO* 1 UNITS UNIT SUBCUT SCH ×2 (08:46→12:32)
[2018-04-19] MEDS: Cephalexin CAP* 500 MG PO SCH ×2 (08:46→12:32)
[2018-04-19] MEDS: Polyethylene Glycol 3350* 17 GM PACKET PO SCH (08:47)
[2018-04-19] MEDS: PTO:Potassium Citrate (NF) 10 MEQ TAB PO SCH (08:56)
[2018-04-19] MEDS: PTO: Solifenacin(NF) 10 MG TAB PO SCH (08:56)
[2018-04-19 14:09] VITALS: BP 140/71
== END 2018-04-19 13:45 | disposition home or self-care (01) | DRG 872 ==
LOC: ED 11:38 → MED 14:19
PROVIDERS: ADMIT Internal Medicine; ATTEND Internal Medicine
DX: A41.9 Sepsis, unspecified organism (principal); L03.116 Cellulitis of left lower limb; N39.0 Urinary tract infection, site not specified; G93.40 Encephalopathy, unspecified; R65.20 Severe sepsis without septic shock; E11.65 Type 2 diabetes mellitus with hyperglycemia; I45.10 Unspecified right bundle-branch block; E83.42 Hypomagnesemia; B96.20 Unspecified Escherichia coli [E. coli] as the cause of diseases classified elsewhere; E66.01 Morbid (severe) obesity due to excess calories; I88.9 Nonspecific lymphadenitis, unspecified; B95.0 Streptococcus, group A, as the cause of diseases classified elsewhere; Z88.1 Allergy status to other antibiotic agents; Z88.0 Allergy status to penicillin; Z87.442 Personal history of urinary calculi; Z90.710 Acquired absence of both cervix and uterus; Z80.3 Family history of malignant neoplasm of breast; Z79.82 Long term (current) use of aspirin; Z68.42 Body mass index [BMI] 45.0-49.9, adult; Z79.84 Long term (current) use of oral hypoglycemic drugs; Z82.0 Family history of epilepsy and other diseases of the nervous system; L53.9 Erythematous condition, unspecified; R51 Headache; K59.00 Constipation, unspecified; R06.02 Shortness of breath
CPT/HCPCS: 36415; 71045; 80048; 80053; 81003; 81015; 83605; 83735; 83880; 84443; 84484; 85025; 85610; 85652; 86140; 87040; 87077; 87086; 87186; 93005; 99284; A9270-GY; G8978-GP-CH; G8979-GP-CH; G8980-GP-CH; J0690; J0696; J1644; J3370; J3475

== ENCOUNTER 2018-06-25 15:03 | Observation (INO) | payer OTHER ==
--- NOTE | 2018-06-25 15:41 | ED ---
HPI Febrile Illness - HPI Summary HPI Summary: A 67 y/o F presents to ED referred from [facility] presents to ED with fever ( 102.8 F) onset BAKER DOUGHNUT. Pt was at work, when she noticed head head was feeling funny. Associated sx: elevated BP, LLE is erythematous and warm to the touch, decreased appetite. Denies CP, abd pain, n/v, urinary sx, LLE pain. Pt was admitted in April for sepsis from LLE cellulitis. Pt was on ABX for a long time, and only recently has returned to work. She saw Dr. Ndiaye, infectious diseases, yesterday for follow-up and everything was OK. PMHx: DM, sepsis (most recently in Apr 2018), frequent UTI. Denies cardiac hx. - History of Current Complaint Chief Complaint: EDFever Time Seen by Provider: 06/25/18 15:34 Hx Obtained From: Patient Onset/Duration: Started Hours Ago, Still Present Timing: Constant Temperature: 39.3 C - at [facility] Initial Severity: Mild Current Severity: Mild Pain Intensity: 3 Pain Scale Used: 0-10 Numeric Associated Signs and Symptoms: Other: - pos: elevated BP, decreased appetite, LLE erythema and warmth. neg: CP, abd pain, n/v, urinary sx, LLE pain - Additional Pertinent History Primary Care Physician: [id number] - Allergy/Home Medications Allergies/Adverse Reactions: Allergies Allergy/AdvReac Type Severity Reaction Status Date / Time ciprofloxacin Allergy Hives Verified 06/25/18 15:12 Penicillins Allergy See Comment Verified 06/25/18 15:12 Home Medications: Home Medications Metformin ER (NF) 1,000 mg PO BID 06/25/18 [History Confirmed 06/25/18] Terbinafine HCl 250 mg PO DAILY 06/25/18 [History Confirmed 06/25/18] glipiZIDE TAB.XL* [Glucotrol Xl*] 10 mg PO DAILY 06/25/18 [History Confirmed ] PMH/Surg Hx/FS Hx/Imm Hx Previously Healthy: No Endocrine/Hematology History: Reports: Hx Diabetes - TYPE II- ON ORAL MEDICATION FOR Comment Only: Other Endocrine/Hematological Disorders - possible pre diabetic obtaining a1c Cardiovascular History: Reports: Other Cardiovascular Problems/Disorders - HISTORY OF PHLEBITIS TO THE LEFT LEG- LAST 04/2015 Respiratory History: Reports: Hx Pneumonia, Other Respiratory Problems/ Disorders - PNEUMONIA-RECENTLY Denies: Hx Asthma History: Reports: Hx Kidney Stones - HISTORY CURRENTLY, Other Problems/ Disorders - Chronic UTI'S Denies: Hx Acute Renal Failure, Hx Benign Prostatic Hyperplasia, Hx Kidney Infection Musculoskeletal History: Reports: Hx Back Problems - lower back, injury in 30's , Other Musculoskeletal History - sciatica both sides Denies: Hx Arthritis Sensory History: Reports: Hx Contacts or Glasses - INSTRUCTS GIVEN Denies: Hx Cataracts, Hx Hearing Aid Opthamlomology History: Reports: Hx Contacts or Glasses - INSTRUCTS GIVEN Denies: Hx Cataracts Neurological History: Reports: Hx Headaches Denies: Hx Dementia, Hx Developmental Delay, Hx Migraine, Hx Nerve Disease, Hx Seizures, Hx Spinal Cord Injury, Hx Transient Ischemic Attacks (TIA), Other Neuro Impairments/Disorders - Cancer History Hx Chemotherapy: No Hx Radiation Therapy: No - Surgical History Surgery Procedure, Year, and Place: hysterectomy CYSTOSCOPY STENT INSERTION-2013. 2007- NASAL FRACTURE REPAIR. WISDOM TEETH REMOVED A TEENAGER. 2006 - D&C Hx Anesthesia Reactions: Yes - STATES HAS A VERY SMALL MOUTH AND THROAT - Immunization History Date of Tetanus Vaccine: Unk Date of Influenza Vaccine: None Infectious Disease History: No Infectious Disease History: Denies: Traveled Outside the [place] in Last 30 Days - Family History Known Family History: Negative: Hypertension - Social History Occupation: Employed Full-time Lives: With Family Alcohol Use: None Hx Substance Use: No Substance Use Type: Reports: None Hx Tobacco Use: No Smoking Status (MU): Never Smoked Tobacco Review of Systems Positive: Fever Negative: Chest Pain Positive: Other - pos: decreased appetite. Negative: Abdominal Pain, Vomiting, Nausea Negative: dysuria, hematuria Musculoskeletal: Other - neg: LLE pain Skin: Other - pos: LLE erythema and warmth All Other Systems Reviewed And Are Negative: Yes Physical Exam - Summary Physical Exam Summary: Appearance: Well-appearing, Well-nourished, lying in bed comfortably Skin: Warm, dry, no obvious rash. Brawny discoloration to LLE; erythema about the LLE medially with associated warmth Eyes: sclera anicteric, no conjunctival pallor ENT: mucous membranes moist, pharynx appears normal Neck: Supple, nontender Respiratory: Clear to auscultation, no signs of respiratory distress Cardiovascular: Normal S1, S2. No murmurs. Normal distal pulses in tibial and radial bilaterally. Abdomen: Soft, nontender, normal active bowel sounds present Musculoskeletal: Normal, Strength/ROM Intact Neurological: A&Ox3, awake and alert, mentation is normal, speech is fluent and appropriate Psychiatric: affect is normal, does not appear anxious or depressed Triage Information Reviewed: Yes Vital Signs On Initial Exam: Initial Vitals Temp Pulse Resp BP Pulse Ox 98.6 F 95 18 170/91 97 06/25/18 15:06 06/25/18 15:06 06/25/18 15:06 06/25/18 15:06 06/25/18 15:06 Vital Signs Reviewed: Yes Diagnostics - Vital Signs Vital Signs Temp Pulse Resp BP Pulse Ox 06/25/18 15:06 98.6 F 95 18 170/91 97 - Laboratory Result Diagrams: 06/27/18 06:05 06/26/18 05:53 Lab Statement: Any lab studies that have been ordered have been reviewed, and results considered in the medical decision making process. - Radiology CXR Radiology Interpretation Completed By: Radiologist Summary of Radiographic Findings: IMPRESSION: No radiographic evidence for acute cardiopulmonary abnormality on this portable chest x-ray. ED provider has reviewed this report. - EKG 1550 Cardiac Rate: Tachycardia - 102 bpm EKG Rhythm: Sinus Tachycardia Summary of EKG Findings: RBBB Course/Dx - Course Course Of Treatment: Pt is a 67 y/o F with pert PMHx: sepsis presents to ED with fever of 102.8 F at [facility] onset BAKER DOUGHNUT. Associated sx: elevated BP, LLE erythema and warmth, decreased appetite. Denies CP, abd pain, n/v, urinary sx, LLE pain. Lab work shows WBC: 15.5, RBC: 5.02, BUN/C ratio: 28.0, Glucose: 113. EKG shows sinus tachy at 102 bpm with RBBB. CXR is unremarkable. UA shows 1 + blood, positive nitrate, 1+ leukocyte esterase, 2+ WBC, 3+ RBC, 1+ bacteria, squamous epithelia present. Consulted with Dr. Willams, hospitalist, who will admit pt. - Diagnoses Provider Diagnoses: Fever, UTI (urinary tract infection) - Provider Notifications Discussed Care Of Patient With: Aixa Willams - hospitalist Time Discussed With Above Provider: 17:30 Instructed by Provider To: Admit As Inpatient Discharge - Sign-Out/Discharge Documenting (check all that apply): Patient Departure - ADMIT Patient Received Moderate/Deep Sedation with Procedure: No - Discharge Plan Condition: Stable Disposition: ADMITTED TO [facility] - Billing Disposition and Condition Condition: STABLE Disposition: Admitted to [facility] - Attestation Statements Document Initiated by Christophere: Yes Documenting Scribe: Ines Prince Provider For Whom Tom is Documenting (Include Credential): Dr. Fletcher Ruiz MD Scribe Attestation: Ines Hayes, scribed for Dr. Fletcher Ruiz MD on 06/28/18 at 0638. Scribe Documentation Reviewed: Yes Provider Attestation: The documentation as recorded by the Ines leon accurately reflects the service I personally performed and the decisions made by me, Dr. Fletcher Ruiz MD Status of Scribe Document: Viewed
[2018-06-25] MEDS ORDERED: NS 0.9% 1000 ML** 1,000 ML IV.FLUID IV ONE (15:42)
[2018-06-25 16:45] LABS: ABS Basophils 0.2 10^3/ul (0-0.2); ABS Eosinophils 0 10^3/ul (0-0.6); ABS Lymphocytes 0.7 10^3/ul (1.0-4.8); ABS Monocytes 0.9 10^3/ul (0-0.8); ABS Neutrophils 13.7 10^3/ul (1.5-7.7); ABS Nucleated RBC 0 10^3/ul; Eosinophil % 0.1 %; Hematocrit 42 % (33-41); Hemoglobin 13.4 g/dL (12.0-16.0); Lymphocyte % 4.5 %; Mean Corpuscular HGB Conc 32 g/dL (31-36); Mean Corpuscular Hemoglobin 27 pg (27-31); Mean Corpuscular Volume 83 fL (80-97); Nucleated Red Blood Cells % 0; Platelet Count 347 10^3/uL (150-450); Red Blood Count 5.02 10^6 /uL (3.70-4.87); Red Cell Distribution Width 15 % (10.5-15); White Blood Count 15.5 10^3/uL (3.5-10.8)
[2018-06-25 16:56] LABS: Albumin 4.1 g/dL (3.2-5.2); Albumin/Globulin Ratio 1.2 (1-3); Calcium 9.2 mg/dL (8.6-10.3); EGFR African American 93.8 (>60); EGFR Non-African American 77.6 (>60); Globulin 3.4 g/dL (2-4); Potassium 4.1 mmol/L (3.5-5.0); Total Bilirubin 0.4 mg/dL (0.2-1.0); Total Protein 7.5 g/dL (6.4-8.9)
[2018-06-25 16:57] LABS: Activated Partial Thrombo Time 26.6 seconds (26.0-36.3); INR 0.94 (0.77-1.02)
[2018-06-25] MEDS ORDERED: Acetaminophen TAB* 325 MG PO ONE (16:58)
[2018-06-25 17:20] LABS: Urine Appearance Cloudy; Urine Bacteria 1+ (Absent); Urine Bilirubin Negative (Negative); Urine Blood 1+ (Negative); Urine Color Yellow; Urine Glucose Negative (Negative); Urine Ketones Negative (Negative); Urine Nitrite Positive (Negative); Urine Protein Negative (Negative); Urine Red Blood Cell 3+(>10/hpf) (Absent); Urine Specific Gravity 1.015 (1.010-1.030); Urine Squamous Epithelial Cell Present (Absent); Urine Urobilinogen Negative (Negative); Urine White Blood Cell 2+(11-20/hpf) (Absent)
[2018-06-25] MEDS ORDERED: ceFAZolin 1 GM ADVAN(*) 1 GM in NS 0.9% 50 ML* 50 ML IVPB ONE (17:33)
[2018-06-25] MEDS ORDERED: cefTRIAXone(*) 1 GM in NS 0.9% 50 ML* 50 ML IVPB ONE (18:30)
[2018-06-25] MEDS ORDERED: Docusate CAP* 100 MG PO PRN (18:32)
[2018-06-25] MEDS ORDERED: Senna TAB PO PRN (18:32)
[2018-06-25] MEDS ORDERED: Dextrose 50% Syringe 50 ML* 25 GM/50 ML SYRINGE IV PUSH PRN (18:33)
[2018-06-25] MEDS ORDERED: Clindamycin 600 MG/D5W BAG(*) 600 MG/50 ML BAG IV ONE (18:39)
[2018-06-25 19:21] LABS: C Reactive Protein 26.47 mg/L (<8.01)
[2018-06-25] MEDS ORDERED: Acetaminophen TAB* 325 MG ONE (20:38)
[2018-06-25] MEDS: Acetaminophen TAB* 325 MG PO PRN (20:41)
[2018-06-25] MEDS: Insulin LISPRO* 1 UNITS UNIT SUBCUT SCH (22:13)
[2018-06-25] MEDS: NS 0.9% 1000 ML** 1,000 ML IV SCH (22:13)
[2018-06-25] MEDS: Aspirin 81 mg CHEW TAB* 81 MG TAB.CHEW PO SCH (22:34)
[2018-06-25] MEDS: Heparin VIAL(*) 5000 UNITS/ML VIAL (FIVE THOUSAND) SUBCUT SCH (22:34)
[2018-06-25] MEDS: Potassium Citrate (NF) 10 MEQ TAB PO SCH (22:34)
--- NOTE | 2018-06-26 00:38 | HP ---
CC: Dr. Horn; Dr. Serjio Hoffmann * HISTORY AND PHYSICAL: DATE OF ADMISSION: 06/25/18 PRIMARY CARE PROVIDER: Dr. Horn. OTHER PROVIDER: Dr. Serjio Hoffmann. ATTENDING PHYSICIAN: Dr. Aixa Bryant * (dictated by Tea Barclay NP). CHIEF COMPLAINT: 1. Fever. 2. Left lower extremity cellulitis. HISTORY OF PRESENT ILLNESS: Mrs. Arthur is a 67-year-old female with a past medical history significant for type 2 diabetes, kidney stone, frequent urinary tract infections, cellulitis, and sepsis, who presented to the emergency department today with complaints of fever and not feeling well, and erythema to left lower leg. While in the emergency department, the patient had a CBC, which revealed elevated WBC at 15.5. In addition, the patient was noted to be tachycardic with a heart rate greater than 100, febrile, tachypneic. Given the patient's presentation of vitals, leukocytosis, and sepsis bolus was initiated and 3570 mL of normal saline were ordered. The patient was started on antibiotic of cefazolin. The patient had blood cultures and urine culture. The hospitalists were asked to consult for admission. The patient was evaluated by this freelance copywriter in room 9 in the emergency department. The patient was lying in the stretcher. She reports that yesterday she was in her normal state of health and even saw Cathy Liriano, Infectious Disease, and she reports her leg was normal and she was cleared and no longer needs followup. This morning she woke and felt fine, and then went to work when she started to feel off, a little confused, and like she did when she previously had sepsis. Therefore, she presented to [facility] who noted she had an elevated fever and sent her here for further evaluation. PAST MEDICAL HISTORY: 1. Type 2 diabetes. 2. History of kidney stones. 3. Frequent urinary tract infections. 4. Cellulitis with sepsis. PAST SURGICAL HISTORY: Hysterectomy. HOME MEDICATIONS: 1. Senokot 1 tab p.o. at bedtime p.r.n. 2. Colace 100 mg p.o. b.i.d. p.r.n. 3. ICaps tablets 1 each p.o. at bedtime. 4. Glipizide 10 mg p.o. daily. 5. Terbinafine HCl 250 mg p.o. daily. 6. VESIcare 10 mg p.o. daily. 7. Aspirin 81 mg p.o. daily. 8. Potassium 20 mg p.o. b.i.d. 9. Metformin 1000 mg p.o. b.i.d. 10. Lisinopril 2.5 mg p.o. daily. ALLERGIES: The patient had allergies to CIPROFLOXACIN and PENICILLIN. FAMILY HISTORY: Mother had a history of breast cancer and father had a history of Parkinson's. SOCIAL HISTORY: No report of alcohol, tobacco or drug use. She is . Her surrogate decision maker is her , Abdelrahman. REVIEW OF SYSTEMS: A 14-point review of systems was completed and all of those not mentioned above were negative. PHYSICAL EXAMINATION GENERAL: Ms. Arthur is a 67-year-old female, who is slightly obese, who is lying on the ED stretcher. Appears in no acute distress. Appears stated age. VITAL SIGNS: Temperature 102.1, HR 100, RR 24, O2 saturation 95% on room air, BP 139/93. HEENT: PERRLA. EOMs intact. Oral mucosa is moist without lesions. Posterior pharynx is clear. NECK: Full range of motion. No lymphadenopathy. RESPIRATORY: Symmetrical chest expansion. No accessory muscle use. Lungs are clear to auscultation. No rhonchi, wheezes or rales. CV: Regular rate and rhythm. S1 and S2 present. No murmurs, rubs or gallops. ABDOMEN: Soft and nontender to palpation. Bowel sounds are normoactive. EXTREMITIES: Skin is warm and smooth bilaterally. The patient has warmth and redness to left lower extremity extending from the foot to below the knee. No clubbing or cyanosis. Pedal pulses are 2+ bilaterally. MUSCULOSKELETAL: Full range of motion. No pain or deformities. NEUROLOGIC: Awake, alert, and oriented x4. Motor strength is 5/5 in the upper and lower extremities. SKIN: Skin on left lower extremity from foot to directly below the knee is reddened and hot to the touch. No open areas noted. Remainder of the skin is intact. DIAGNOSTIC STUDIES/LAB DATA: WBC 15.5, hemoglobin 13.4, hematocrit 42, platelets 347. Sodium 135, potassium 4.1, chloride 101, carbon dioxide 26, BUN 21, creatinine 0.75, glucose 113, lactic acid 1.3, troponin 0.00. Urine is positive for blood, nitrites, leukocyte esterase, wbc, rbc, squamous epithelial, bacteria. Chest x-ray, impression: No radiographic evidence for acute cardiopulmonary abnormality on this portable chest x-ray. ASSESSMENT AND PLAN: Mrs. Arthur is a 67-year-old female with past medical history significant for diabetes, kidney stones, frequent urinary tract infections, cellulitis and sepsis; who presented to the emergency room today with fever and was found to have cellulitis, and meeting sepsis criteria. She will be admitted to observation. 1. Left lower extremity cellulitis: The patient has no purulence or wound. The patient has a history of cellulitis in the same leg. She just completed antibiotics about 3 weeks ago. These antibiotics were Keflex. The patient followed up with Infectious Disease yesterday and was cleared. I spoke with Dr. Serjio Hoffmann and FUNCTIONAL MANAGER, who recommended ceftriaxone and 1 dose of clindamycin. We will monitor the patient's blood cultures and lactic acid. The patient has received sufficient IV fluid bolus. I will continue IV fluid at maintenance rate. The nurse in the ED marked the area of redness for monitoring. 2. Sepsis: The patient meets sepsis criteria on admission. The patient is tachycardic, tachypneic, leukocytosis, and febrile. There is also a known source of infection. The source could be left lower extremity and/or urine. The patient received antibiotics, mendenhall cultured, and received sufficient fluid bolus. We will continue to monitor. 3. Diabetes: I have stopped the patient's oral medications of glipizide and metformin, and we will place her on a sliding scale and lispro accordingly. 4. History of kidney stones: The patient has no costovertebral angle tenderness, is not complaining of any flank pain. We will continue to monitor and provide supportive care. 5. Urinary tract infection: The patient has history of urinary tract infections and possibly asymptomatic bacteremia. Given the patient's positive nitrites and bacteria and current status, I have started on ceftriaxone which will cover both her cellulitis and urinary tract infection. I will await urine cultures. 6. Cellulitis and sepsis: The patient has a history of cellulitis in the same leg and also resulting in sepsis. I discussed this with Dr. Serjio Hoffmann who suspect the patient will need suppression therapy. 7. FEN: The patient will be provided with a regular diet. 8. Code status: The patient is a full code. 9. DVT prophylaxis: Based on deep venous thrombosis risk assessment, the patient is a high risk. I will order subcu heparin. TIME SPENT: Approximately 65 minutes were spent on this admission, greater than half the time was spent with the patient and family obtaining my history, performing my physical exam, and reviewing my plan of care. This case has been reviewed with my attending, Dr. Bryant, who is in agreement with my plan of care. TEA BARCLAY, FUNCTIONAL MANAGER [id number]/[facility] #: [id number]
[2018-06-26] MEDS: Acetaminophen TAB* 325 MG PO PRN ×2 (04:51→13:57)
[2018-06-26] MEDS: Heparin VIAL(*) 5000 UNITS/ML VIAL (FIVE THOUSAND) SUBCUT SCH ×3 (06:16→21:16)
[2018-06-26 06:35] LABS: ABS Basophils 0 10^3/ul (0-0.2); ABS Eosinophils 0 10^3/ul (0-0.6); ABS Lymphocytes 0.6 10^3/ul (1.0-4.8); ABS Monocytes 0.8 10^3/ul (0-0.8); ABS Nucleated RBC 0 10^3/ul; Eosinophil % 0.2 %; Hematocrit 35 % (33-41); Hemoglobin 11.7 g/dL (12.0-16.0); Lymphocyte % 6.7 %; Mean Corpuscular HGB Conc 33 g/dL (31-36); Mean Corpuscular Hemoglobin 27 pg (27-31); Mean Corpuscular Volume 83 fL (80-97); Nucleated Red Blood Cells % 0; Platelet Count 253 10^3/uL (150-450); Red Blood Count 4.28 10^6 /uL (3.70-4.87); Red Cell Distribution Width 15 % (10.5-15); White Blood Count 8.4 10^3/uL (3.5-10.8)
[2018-06-26 06:48] LABS: ALT 10 U/L (7-52); AST 11 U/L (13-39); Albumin 3.3 g/dL (3.2-5.2); Albumin/Globulin Ratio 1.2 (1-3); Alkaline Phosphatase 54 U/L (34-104); Anion Gap 8 mmol/L (2-11); BUN/Creatinine Ratio 23.7 (8-20); Blood Urea Nitrogen 14 mg/dL (6-24); CO2 Carbon Dioxide 22 mmol/L (22-32); Calcium 8.2 mg/dL (8.6-10.3); Chloride 109 mmol/L (101-111); EGFR African American 123.8 (>60); EGFR Non-African American 102.3 (>60); Globulin 2.7 g/dL (2-4); Glucose 117 mg/dL (70-100); Potassium 3.8 mmol/L (3.5-5.0); Sodium 139 mmol/L (135-145)
[2018-06-26] MEDS: NS 0.9% 1000 ML** 1,000 ML IV SCH ×2 (08:35→21:25)
[2018-06-26] MEDS: Insulin LISPRO* 1 UNITS UNIT SUBCUT SCH ×4 (08:50→21:20)
[2018-06-26] MEDS: TERBINAFINE HCL 250 MG PO SCH (08:51)
[2018-06-26] MEDS: Solifenacin(NF) 10 MG TAB PO SCH (08:51)
[2018-06-26] MEDS: Potassium Citrate (NF) 10 MEQ TAB PO SCH ×2 (08:51→21:21)
--- NOTE | 2018-06-26 16:33 | PN ---
Subjective Date of Service: 06/26/18 Interval History: VS: WNL Lab: leukocytosis resolved; low hgb- likely dilutional Pt present with LLE cellulitis, fever, UTI. She was treated recently for LLE cellulitis with Keflex followed by Clindamycin and showed improvement at her f/ u appt with ID on Saturday. Yesterday, she presented to ER with erythema to LLE, tenderness, pain, swelling. She states she felt confused at the time, but states this has resolved. She states that the leg is feeling better. She denies CP, SOB, cough, fever, chills, abd pain. She denies urinary symptoms, but states she never gets symptoms with UTI. She has ham, but denies neck pain. Objective Active Medications: Acetaminophen (Tylenol Tab*) 650 mg PO Q4H PRN Aspirin (Aspirin 81 Mg Chew Tab*) 81 mg PO BEDTIME CELIA Dextrose (D50w Syringe 50 Ml*) 12.5 gm IV PUSH .FOR FS < 60 - SS PRN Docusate Sodium (Colace Cap*) 100 mg PO BID PRN Heparin Sodium (Porcine) (Heparin Vial(*)) 5,000 units SUBCUT Q8HR CELIA Sodium Chloride (Ns 0.9% 1000 Ml) 1,000 mls @ 125 mls/hr IV PER RATE CELIA Ceftriaxone Sodium 1 gm/ (Sodium Chloride) 50 mls @ 200 mls/hr IVPB Q24H CELIA Insulin Human Lispro (Humalog*) 0 units SUBCUT ACHS CELIA; Protocol [Terbinafine Hcl] (250 Mg) 250 mg PO DAILY CELIA Potassium Citrate (Urocit-K 10 (Nf)) 20 meq PO BID CELIA Senna (Senokot Tab*) 1 tab PO BEDTIME PRN Solifenacin (Vesicare(Nf)) 10 mg PO DAILY CELIA Vital Signs: Temp Pulse Resp BP Pulse Ox 98.1 F 78 18 156/71 98 06/26/18 14:27 06/26/18 14:27 06/26/18 14:27 06/26/18 14:27 06/26/18 14:27 Oxygen Devices in Use Now: None Appearance: Pt is laying in bed with b/l LE elevated. She is sleeping upon entering, but wakes easily and is pleasant and cooperative. Eyes: No Scleral Icterus, PERRLA Ears/Nose/Mouth/Throat: NL Teeth, Lips, Gums, Clear Oropharnyx, Mucous Membranes Moist Neck: NL Appearance and Movements; NL JVP, Trachea Midline Respiratory: Symmetrical Chest Expansion and Respiratory Effort, Clear to Auscultation Cardiovascular: NL Sounds; No Murmurs; No JVD, RRR, No Edema Abdominal: NL Sounds; No Tenderness; No Distention, No Hepatosplenomegaly Extremities: No Clubbing, Cyanosis, - - RLE WNL. LLE erythema has receded slightly from the proximal area demarcated, but extended slightly into the foot. Erythema from ankle/heel to approximately 2/3 up calf, circumfrential. Swelling, warmth. Neurological: Alert and Oriented x 3 Result Diagrams: 06/26/18 05:53 06/26/18 05:53 Microbiology and Other Data: Microbiology 06/25/18 16:04 Aerobic Blood Culture - Preliminary Blood Venous No Growth Day 1 Anaerobic Blood Culture - Preliminary No Growth Day 1 06/25/18 17:03 Urine Culture - Final Urine Assess/Plan/Problems-Billing Assessment: 67yof h/o DMII, cellulitis, frequent UTI, h/o nephrolithiasis presents with LLE cellulitis, UTI, fever. - Patient Problems (1) Cellulitis Comment: -Presented with cellulitis with sepsis; sepsis resolved -LLE erythematous, warm, swollen; receding from area of demarcation slightly -Continue Ceftriaxone -ID to see tomorrow (2) UTI (urinary tract infection) Comment: -LE and nitrates on UA; awaiting culture -Contintue Ceftriaxone (3) Diabetes Comment: -Adequate control -Lispro ss -Hold home medications until d/c (4) DVT prophylaxis Comment: -Heparin (5) Full code status Status and Disposition: Observation. Continue to monitor and discharge when medically stable. ID to see 06/27/2017.
[2018-06-26] MEDS ORDERED: Naproxen TAB* 375 MG PO ONE (16:34)
[2018-06-26] MEDS: cefTRIAXone(*) 1 GM in NS 0.9% 50 ML* 50 ML IVPB SCH (17:22)
[2018-06-26] MEDS: Aspirin 81 mg CHEW TAB* 81 MG TAB.CHEW PO SCH (21:16)
[2018-06-27] MEDS: Acetaminophen TAB* 325 MG PO PRN (02:08)
[2018-06-27] MEDS: NS 0.9% 1000 ML** 1,000 ML IV SCH (05:50)
[2018-06-27] MEDS: Heparin VIAL(*) 5000 UNITS/ML VIAL (FIVE THOUSAND) SUBCUT SCH ×2 (05:50→12:29)
[2018-06-27 06:27] LABS: ABS Basophils 0.1 10^3/ul (0-0.2); ABS Eosinophils 0.3 10^3/ul (0-0.6); ABS Lymphocytes 1.2 10^3/ul (1.0-4.8); ABS Neutrophils 3.2 10^3/ul (1.5-7.7); ABS Nucleated RBC 0 10^3/ul; Eosinophil % 5.7 %; Hematocrit 35 % (33-41); Hemoglobin 11.4 g/dL (12.0-16.0); Lymphocyte % 20.6 %; Mean Corpuscular HGB Conc 33 g/dL (31-36); Mean Corpuscular Hemoglobin 28 pg (27-31); Mean Corpuscular Volume 84 fL (80-97); Mean Platelet Volume 7.9 fL (7.4-10.4); Nucleated Red Blood Cells % 0.1; Platelet Count 236 10^3/uL (150-450); Red Blood Count 4.14 10^6 /uL (3.70-4.87); Red Cell Distribution Width 15 % (10.5-15); White Blood Count 5.7 10^3/uL (3.5-10.8)
[2018-06-27] MEDS: Insulin LISPRO* 1 UNITS UNIT SUBCUT SCH ×3 (07:58→16:38)
[2018-06-27] MEDS: Potassium Citrate (NF) 10 MEQ TAB PO SCH (09:24)
[2018-06-27] MEDS: TERBINAFINE HCL 250 MG PO SCH (09:24)
[2018-06-27] MEDS: Solifenacin(NF) 10 MG TAB PO SCH (09:24)
[2018-06-27 15:27] VITALS: BP 145/77
--- NOTE | 2018-06-27 16:31 | CONS ---
CONSULTATION REPORT: DATE OF CONSULTATION: 06/27/18 REQUESTING PROVIDER: Yamilex Davidson NP. CONSULTING SERVICE: Infectious Diseases. REASON FOR CONSULTATION: Left leg cellulitis. IMPRESSION: 1. Recurrent left leg cellulitis, much milder than the last episode and significantly improved with antibiotics. 2. Venous insufficiency. 3. Onychomycosis. 4. PENICILLIN allergy. RECOMMENDATION: Clindamycin 300 mg by mouth 3 times a day for 10 more days and follow up with Cathy Koroma NP as an outpatient for penicillin skin testing. Assuming that is negative, I would like to have her transitioned to amoxicillin 500 mg by mouth twice a day for 3 to 6 months for suppression, while we are treating her prevent recurrence while we are treating her onychomycosis. HISTORY OF PRESENT ILLNESS: This is a 67-year-old woman with diabetes and onychomycosis met with a recurrence of left leg cellulitis. She had been much improved over the last couple of weeks and then one day developed pain, redness , and swelling so she came to the hospital. She had a low-grade fever, temp of 38.9 when she got to the ER. White count of 15,000. She was started on ceftriaxone, had a dose of clindamycin. Her symptoms have much improved today, she feels almost back to her usual self, bearing weight without pain. No fevers , chills, and appetite is good. PAST MEDICAL HISTORY: 1. Type 2 diabetes. 2. Obesity. 3. Left leg cellulitis. 4. Nephrolithiasis. 5. UTI. 6. Status post hysterectomy. MEDICATIONS: 1. Tylenol. 2. Aspirin. 3. Heparin subcutaneous injection. 4. Ceftriaxone 1 g a day. 5. VESIcare. 6. Terbinafine. ALLERGIES: 1. CIPRO. 2. PENICILLIN. Had never taken it, but told not to take it because her parents were allergic. FAMILY HISTORY: Mother had breast cancer. Father had Parkinson's. SOCIAL HISTORY: She works at [employer]. Lives in [place]. Lives with her . She is a nonsmoker. REVIEW OF SYSTEMS: A 14-point review is all negative except as noted above in the history of present illness. PHYSICAL EXAM: Vital Signs: Temperature 35.7, heart rate 70, respirations 16, blood pressure 130/65, oxygen saturation 99% on room air. General: She is awake, not in distress. Neurologic: She is alert and oriented x3. Follows commands. HEENT: There is no conjunctival hemorrhage. Oropharynx without lesions. Neck is supple without masses. Heart is regular rate and rhythm without murmurs, rubs, or gallops. Lungs: Clear to auscultation bilaterally. Abdomen: Soft, nontender, nondistended. Bowel sounds present. Skin: On the right leg, there is trace medial erythema down through the ankle without tenderness. Musculoskeletal: There is no spine tenderness to palpation. There is no left ankle tenderness with range of motion or effusion. DIAGNOSTIC STUDIES/LAB DATA: Creatinine 0.6. White blood cell count 5, hemoglobin 11, platelets 236. Please see impressions and recommendations outlined above. Thanks for asking me to see Ms. Arthur in consultation. [id number]/[facility] #: [id number] [id number]
[2018-06-27] MEDS: cefTRIAXone(*) 1 GM in NS 0.9% 50 ML* 50 ML IVPB SCH (16:37)
--- NOTE | 2018-06-28 00:39 | DS ---
Amended report to enter cosigning physician. CC: Dr. Ramya Horn; Dr. Serjio Hoffmann; Cathy Liriano NP* DISCHARGE SUMMARY: DATE OF ADMISSION: 06/25/18 DATE OF DISCHARGE: 06/27/18 PRIMARY CARE PROVIDER: Dr. Ramya Horn. ATTENDING PHYSICIAN: Dr. Jose Heredia* (dictated by Koki Gannon NP). PRIMARY DIAGNOSES: 1. Recurrent left leg cellulitis. 2. Sepsis. SECONDARY DIAGNOSES: 1. Recurrent urinary tract infections. 2. Diabetes mellitus, type 2. STUDIES WHILE IN THE HOSPITAL: 1. Chest x-ray on 06/25/18 reads as no radiographic evidence for acute cardiopulmonary abnormality on his portable chest x-ray. 2. EKG on 06/25/18 shows sinus tachycardia with a rate of 102; QTc 477; inverted T waves in III, aVF, V1, V2, V3 as is consistent with previous EKG on file; Q waves present in III and aVF as is consistent with previous EKG on file. 3. Left leg venous Doppler study on 06/26/18 reads as no evidence for deep vein thrombosis. HISTORY OF PRESENT ILLNESS AND HOSPITAL COURSE: Ms. Arthur is a 67-year-old female with past medical history of type 2 diabetes, recurrent urinary tract infections, and recurrent cellulitis, who presented to the emergency room on with complaints of fever and left leg erythema. Please see the history and physical by Yamilex Davidson NP, for a complete summary of the events leading up to this hospitalization. In short, the patient was most recently hospitalized to this facility from 04/13/18 through 04/19/18 with sepsis secondary to cellulitis. The cellulitis resolved with antibiotics, though ultimately noted to recur. In the emergency room, the patient was noted to meet sepsis criteria with leukocytosis, tachycardia, tachypnea, and fever. The source of the sepsis was cellulitis. The patient was given appropriate fluid bolus and was started on cefazolin. The area of cellulitis was demarcated and she was admitted by the hospitalist service. Sepsis resolved and cellulitis improved from the demarcation on admission. There was also some concern for urinary tract infection based on her urinalysis , though ultimately the urine culture did not show any significant growth. The patient was seen in consultation by Dr. Hoffmann from Infectious Disease because of her recurrent left leg cellulitis. He saw the patient on 06/27/18 and recommended 10 days of clindamycin and followup as an outpatient. At that point, she will likely be transitioned to amoxicillin for suppression. As of today, the patient reports feeling well. She is anxious to go home. The pain in her left lower extremity has resolved and the erythema is significantly improved from the demarcated area, although there is still erythema to the left lower leg. There is no obvious edema and the patient is ambulatory at her baseline. Physical exam is otherwise benign. She has been cleared for discharge by Infectious Disease. Ms. Arthur is stable for discharge today. Vital signs are as follows: Temp 97.6 , heart rate 72, respiratory rate 24, oxygen saturation 99% on room air, blood pressure 145/77. DISCHARGE MEDICATIONS: New Medication: 1. Clindamycin 300 mg p.o. t.i.d. x10 days. Continued medications: 1. Aspirin 81 mg p.o. daily. 2. Docusate 100 mg p.o. b.i.d. p.r.n. constipation. 3. Potassium citrate 20 mEq p.o. b.i.d. 4. Senna 1 tab p.o. at bedtime p.r.n. constipation. 5. VESIcare 10 mg p.o. daily. 6. Terbinafine 250 mg p.o. daily. 7. ICAPS 1 tab p.o. at bedtime. 8. Glipizide 10 mg p.o. daily. 9. Lisinopril 2.5 mg p.o. daily. 10. Metformin 1000 mg p.o. b.i.d. DISCHARGE PLAN: Ms. Arthur will be discharged home. Activity will be as tolerated. Diet will be regular as tolerated, though the patient should follow a diabetic diet. Medications as noted above. The patient has been prescribed a 10-day course of clindamycin per recommendations from Infectious Disease. She can continue her other usual medications as noted above and I have not made any further changes. She will need to follow up with Infectious Disease in approximately 10 days and should make an appointment to see Cathy Koroma NP. At that point, she will likely undergo penicillin skin testing as she does have PENICILLIN listed as an allergy, but ultimately the goal would be to place her on amoxicillin for suppression therapy. She should follow up with her primary care provider in 4 to 7 days. She should return to the emergency room or nearest hospital for any worsening of symptoms, shortness of breath, lightheadedness, dizziness, chest discomfort, high fever, chills, night sweats, loss of consciousness, or any other worrisome signs or symptoms. DISCHARGE CONDITION: Stable. DISCHARGE DISPOSITION: Home. This is a summarized report of a complex medical history and hospital stay. For further details, please see the entire medical record. TIME SPENT: Approximately 40 minutes was spent on this discharge. KOKI GANNON, PHOTOGRAPHIC PLATEMAKER [id number]/[facility] #: [id number]
== END 2018-06-27 18:15 | disposition home or self-care (01) ==
LOC: ED 15:03 → MED 18:21
PROVIDERS: ADMIT Student in an Organized Health Care Education/Training Program; ATTEND Internal Medicine
DX: L03.116 Cellulitis of left lower limb (principal); A41.9 Sepsis, unspecified organism; N39.0 Urinary tract infection, site not specified; E11.9 Type 2 diabetes mellitus without complications; Z79.82 Long term (current) use of aspirin; R50.9 Fever, unspecified; Z87.442 Personal history of urinary calculi; Z88.0 Allergy status to penicillin; E66.9 Obesity, unspecified; Z90.710 Acquired absence of both cervix and uterus
CPT/HCPCS: 36415; 71045; 80048; 80053; 80076; 81003; 81015; 83605; 84484; 85025; 85610; 85730; 86140; 87040; 87077; 87086; 87150; 87205; 93005; 96365; 96372; 96375; 99284; A9270-GY; G0378; J0690; J0696; J1644

== ENCOUNTER 2020-03-24 16:47 | Observation (INO) ==
[2020-03-24 19:23] LABS: Urine Appearance Cloudy; Urine Bilirubin Negative (Negative); Urine Blood 2+ (Negative); Urine Color Yellow; Urine Glucose Negative (Negative); Urine Ketones Trace (Negative); Urine Nitrite Positive (Negative); Urine Protein Negative (Negative); Urine Urobilinogen Negative (Negative)
[2020-03-24 19:26] LABS: Urine Bacteria 1+ (Absent); Urine Red Blood Cell 3+(>10/hpf) (Absent); Urine Squamous Epithelial Cell Present (Absent); Urine White Blood Cell 3+(>20/hpf) (Absent)
[2020-03-24 19:56] LABS: Hematocrit 41 % (35-47); Hemoglobin 13.5 g/dL (12.0-16.0); Mean Corpuscular HGB Conc 33 g/dL (31-36); Mean Corpuscular Hemoglobin 28 pg (27-31); Mean Corpuscular Volume 85 fL (80-97); Mean Platelet Volume 7.9 fL (7.4-10.4); Platelet Count 301 10^3/uL (150-450); Red Cell Distribution Width 14 % (10-15); White Blood Count 25.7 10^3/uL (3.5-10.8)
[2020-03-24 20:02] LABS: ABS Lymphocytes 0.4 10^3/ul (1.0-4.8); ABS Monocytes 1.4 10^3/ul (0-0.8); ABS Neutrophils 23.9 10^3/ul (1.5-7.7); Eosinophil % 0.1 %; Lymphocyte % 1.4 %
[2020-03-24 20:04] LABS: INR 1.12 (0.82-1.09)
[2020-03-24 20:14] LABS: Blood Urea Nitrogen 20 mg/dL (6-24); CO2 Carbon Dioxide 25 mmol/L (22-32); Calcium 9.2 mg/dL (8.6-10.3); Chloride 106 mmol/L (101-111); EGFR African American 86.6 (>60); EGFR Non-African American 71.5 (>60); Glucose 152 mg/dL (70-100); Sodium 139 mmol/L (135-145)
[2020-03-24] MEDS ORDERED: Iodixanol (CONTRAST) 320 MG/ML 100 ML SDV IV ONE (20:20)
[2020-03-24 20:21] LABS: Activated Partial Thrombo Time 27.7 seconds (26.0-38.0)
[2020-03-24 20:48] LABS: Anion Gap 8 mmol/L (2-11)
[2020-03-24] MEDS ORDERED: cefTRIAXone 1 gm/50 mL NS BAG 1 GM/50 ML BAG IV ONE (21:06)
[2020-03-24] MEDS ORDERED: NS 0.9% 1000 ml BAG 1,000 ML IV ONE ×2 (23:23→23:26)
[2020-03-24] MEDS ORDERED: cefTRIAXone 1 gm/50 mL NS BAG 1 GM/50 ML BAG IVPB ONE (23:23)
[2020-03-24] MEDS ORDERED: fentaNYL 100 mcg/2 ml 50 MCG/ML VIAL IV SLOW PU ONE (23:24)
[2020-03-25] MEDS ORDERED: Midazolam 2 mg/2 ml VIAL 1 mg/ml 2 ml VIAL (2 mg) IV SLOW PU SCH
[2020-03-25] MEDS ORDERED: Phenylephrine 40 mcg/mL 10mL (400mcg) SYRINGE IV SCH
[2020-03-25] MEDS ORDERED: Gentamicin ADULT 380 MG in NS 0.9% 100 ml BAG 100 ML IVPB ONE
[2020-03-25] MEDS ORDERED: Propofol 10 MG/ML 20 ML BTL IV SCH
[2020-03-25] MEDS ORDERED: Lidocaine 2% PF 5 ML VIAL IV SCH
[2020-03-25] MEDS ORDERED: fentaNYL 100 mcg/2 ml 50 MCG/ML VIAL IV SCH
[2020-03-25] MEDS ORDERED: Ondansetron 4 mg VIAL 2 MG/ML 2 ml VIAL IV PRN (00:57)
[2020-03-25] MEDS ORDERED: NS 0.9% 1000 ml BAG 1,000 ML IV SCH (01:00)
[2020-03-25] MEDS ORDERED: fentaNYL 100 mcg/2 ml 50 MCG/ML VIAL IV SLOW PU PRN (01:23)
[2020-03-25] MEDS ORDERED: Dextrose 50% Syringe 50 ml 25 GM/50 ML SYRINGE IV PUSH PRN (02:07)
[2020-03-25 04:39] LABS: ABS Basophils 0.1 10^3/ul (0-0.2); ABS Lymphocytes 1.2 10^3/ul (1.0-4.8); ABS Monocytes 1.5 10^3/ul (0-0.8); ABS Neutrophils 15.6 10^3/ul (1.5-7.7); Eosinophil % 0.2 %; Hematocrit 37 % (35-47); Hemoglobin 12.1 g/dL (12.0-16.0); Lymphocyte % 6.6 %; Mean Corpuscular HGB Conc 33 g/dL (31-36); Mean Corpuscular Hemoglobin 28 pg (27-31); Mean Corpuscular Volume 85 fL (80-97); Mean Platelet Volume 7.7 fL (7.4-10.4); Platelet Count 295 10^3/uL (150-450); Red Blood Count 4.33 10^6 /uL (3.70-4.87); Red Cell Distribution Width 14 % (10-15); White Blood Count 18.4 10^3/uL (3.5-10.8)
[2020-03-25 04:56] LABS: BUN/Creatinine Ratio 23.5 (8-20); Calcium 8.4 mg/dL (8.6-10.3); EGFR African American 85.3 (>60); EGFR Non-African American 70.5 (>60); Potassium 4.5 mmol/L (3.5-5.0)
[2020-03-25] MEDS: CMCS: Solifenacin 5 mg TAB (NF) PO SCH (07:29)
[2020-03-25 09:02] LABS: Uric Acid 5.9 mg/dL (2.3-6.6)
[2020-03-25] MEDS ORDERED: Dextrose 50% Syringe 50 ml 25 GM/50 ML SYRINGE ONE (09:47)
[2020-03-25] MEDS: Dextrose 50% Syringe 50 ml 25 GM/50 ML SYRINGE IV PUSH PRN ×2 (09:48→10:21)
[2020-03-25] MEDS ORDERED: Iohexol 180 (CONTRAST) 10 ML SDV IV ONE (11:27)
[2020-03-25] MEDS ORDERED: Famotidine IV 10 MG/ML 2 ml VIAL (20 mg) IV SLOW PU ONE (11:28)
[2020-03-25] MEDS ORDERED: fentaNYL 100 mcg/2 ml 50 MCG/ML VIAL IV PRN (11:29)
[2020-03-25] MEDS ORDERED: HYDROcodone/ACETAMIN 5/325 mg TAB PO PRN (11:29)
[2020-03-25] MEDS ORDERED: DiMENhydriNATE IV 50 mg/ml 1 ml VIAL IV PUSH PRN (11:29)
[2020-03-25] MEDS ORDERED: Naloxone 0.4 mg VIAL 0.4 mg/ml 1 ml VIAL IV PRN (11:29)
[2020-03-25] MEDS ORDERED: Famotidine IV 10 MG/ML 2 ml VIAL (20 mg) ONE (11:32)
[2020-03-25] MEDS: D5NS 0.9% 1000 ml BAG 1,000 ML IV SCH (13:35)
[2020-03-25] MEDS ORDERED: Enoxaparin 40 MG/0.4 ML SYR SUBCUT SCH (21:00)
[2020-03-25] MEDS ORDERED: cefTRIAXone 1 gm/50 mL NS BAG 1 GM/50 ML BAG IVPB SCH (23:00)
[2020-03-26] MEDS: D5NS 0.9% 1000 ml BAG 1,000 ML IV SCH (03:58)
[2020-03-26 05:35] LABS: ABS Basophils 0.1 10^3/ul (0-0.2); ABS Eosinophils 0.3 10^3/ul (0-0.6); ABS Lymphocytes 0.6 10^3/ul (1.0-4.8); ABS Neutrophils 4.9 10^3/ul (1.5-7.7); Hematocrit 34 % (35-47); Hemoglobin 11.5 g/dL (12.0-16.0); Lymphocyte % 8.2 %; Mean Corpuscular HGB Conc 34 g/dL (31-36); Mean Corpuscular Hemoglobin 29 pg (27-31); Mean Corpuscular Volume 85 fL (80-97); Platelet Count 227 10^3/uL (150-450); Red Cell Distribution Width 14 % (10-15); White Blood Count 6.8 10^3/uL (3.5-10.8)
[2020-03-26 05:48] LABS: BUN/Creatinine Ratio 26.6 (8-20); Calcium 8.2 mg/dL (8.6-10.3); EGFR Non-African American 92.6 (>60); Magnesium 1.8 mg/dL (1.9-2.7); Potassium 4.1 mmol/L (3.5-5.0)
[2020-03-26] MEDS ORDERED: Magnesium Sulfate 2 gm BAG 2 GM/50 ML BAG IVPB ONE (07:12)
[2020-03-26 07:30] VITALS: BP 140/73
[2020-03-26] MEDS: CMCS: Solifenacin 5 mg TAB (NF) PO SCH (09:01)
== END 2020-03-26 12:40 | disposition home or self-care (01) ==
LOC: ED 16:47 → SSU 16:47
PROVIDERS: ADMIT Internal Medicine; ATTEND Internal Medicine

== ENCOUNTER 2022-09-08 22:01 | Inpatient (IN) ==
[2022-09-09] MEDS ORDERED: Morphine 4 MG/ML VIAL (1 ml) IV ONE (02:56)
[2022-09-09 03:24] LABS: Hemoglobin 11.8 g/dL (11.5-14.3); Mean Corpuscular Hemoglobin 29.4 pg (27-33); Mean Corpuscular Hgb Conc 32.8 g/dL (31-36); Mean Corpuscular Volume 89.4 fL (80-97); Mean Platelet Volume 7.3 fL (7.5-11.2); Platelet Count 357 10^3/uL (150-450); Red Blood Count 4.02 10^6/uL (3.63-4.92); Red Cell Distribution Width 15.4 % (12-17); White Blood Count 13.9 10^3/uL (3.8-11.8)
[2022-09-09 03:39] LABS: Albumin 3.7 g/dL (3.2-5.2); Albumin/Globulin Ratio 1.2 (1-3); C Reactive Protein 53.62 mg/L (<8.01); Calcium 8.7 mg/dL (8.6-10.3); Creatinine, Serum 0.95 mg/dL (0.51-0.95); Globulin 3.1 g/dL (2-4); Total Bilirubin 0.5 mg/dL (0.2-1.0); Total Protein 6.8 g/dL (6.4-8.9); eGFR CKD-EPI 64.9 (>60)
[2022-09-09 03:49] LABS: ABS Basophils 0.1 10^3/uL (0.0-0.1); ABS Eosinophils 0.5 10^3/uL (0.0-0.5); ABS Lymphocytes 1.2 10^3/uL (1.0-4.8); ABS Monocytes 1.6 10^3/uL (0.0-0.9); ABS Neutrophils 10.5 10^3/uL (1.5-7.6); ABS Nucleated RBC 0.01 10^3/ul; Eosinophil % 3.6 %; Lymphocyte % 8.4 %
[2022-09-09] MEDS ORDERED: Ondansetron 4 mg VIAL 2 MG/ML 2 ml VIAL IV PRN (06:51)
[2022-09-09] MEDS ORDERED: Dextrose 50% Syringe 50 ml 25 GM/50 ML SYRINGE IV PUSH PRN (07:01)
[2022-09-09] MEDS: DULoxetine DR 60 mg CAP PO SCH (08:27)
[2022-09-09] MEDS: VIBEGRON 75 MG PO SCH (08:32)
[2022-09-09] MEDS: POTASSIUM CITRATE 10 MEQ PO SCH ×2 (08:32→21:08)
[2022-09-09] MEDS ORDERED: METHOTREXATE SODIUM 25 MG/ML SUBCUT SCH (17:03)
[2022-09-09] MEDS ORDERED: [UNRECOGNIZED DRUG - REMARK] SUBCUT ONE (17:04)
[2022-09-09] MEDS: Enoxaparin 40 MG/0.4 ML SYR SUBCUT SCH (21:06)
[2022-09-10 05:59] LABS: ABS Basophils 0.1 10^3/uL (0.0-0.1); ABS Lymphocytes 1.2 10^3/uL (1.0-4.8); ABS Monocytes 1.3 10^3/uL (0.0-0.9); ABS Neutrophils 5.4 10^3/uL (1.5-7.6); Eosinophil % 10.6 %; Hematocrit 34.2 % (35-45); Hemoglobin 11.7 g/dL (11.5-14.3); Lymphocyte % 13.7 %; Mean Corpuscular Hemoglobin 30.8 pg (27-33); Mean Corpuscular Hgb Conc 34.3 g/dL (31-36); Mean Corpuscular Volume 89.7 fL (80-97); Mean Platelet Volume 7.7 fL (7.5-11.2); Platelet Count 295 10^3/uL (150-450); Red Blood Count 3.81 10^6/uL (3.63-4.92); Red Cell Distribution Width 15.6 % (12-17)
[2022-09-10] MEDS: DULoxetine DR 60 mg CAP PO SCH (08:27)
[2022-09-10] MEDS: POTASSIUM CITRATE 10 MEQ PO SCH ×2 (08:28→21:27)
[2022-09-10] MEDS: VIBEGRON 75 MG PO SCH (08:28)
[2022-09-10] MEDS ORDERED: METHOTREXATE 25 MG/ML SCH (13:00)
[2022-09-10] MEDS: Enoxaparin 40 MG/0.4 ML SYR SUBCUT SCH (21:27)
[2022-09-11] MEDS: DULoxetine DR 60 mg CAP PO SCH (07:45)
[2022-09-11] MEDS: POTASSIUM CITRATE 10 MEQ PO SCH ×2 (07:46→21:13)
[2022-09-11] MEDS: VIBEGRON 75 MG PO SCH (07:47)
[2022-09-11] MEDS: Enoxaparin 40 MG/0.4 ML SYR SUBCUT SCH (21:14)
[2022-09-12] MEDS: DULoxetine DR 60 mg CAP PO SCH (08:06)
[2022-09-12] MEDS: POTASSIUM CITRATE 10 MEQ PO SCH ×2 (08:15→21:34)
[2022-09-12] MEDS: VIBEGRON 75 MG PO SCH (08:16)
[2022-09-12] MEDS ORDERED: Magnesium Hydroxide LIQ 30 ML UDC PO PRN (14:38)
[2022-09-12] MEDS ORDERED: Senna TAB 8.6 mg TAB PO PRN (14:38)
[2022-09-12] MEDS ORDERED: Polyethylene Glycol 3350 17 GM PACKET PO PRN (14:38)
[2022-09-12] MEDS: Magnesium Hydroxide LIQ 30 ML UDC PO SCH (21:33)
[2022-09-12] MEDS: Enoxaparin 40 MG/0.4 ML SYR SUBCUT SCH (21:35)
[2022-09-13] MEDS: VIBEGRON 75 MG PO SCH (08:41)
[2022-09-13] MEDS: Magnesium Hydroxide LIQ 30 ML UDC PO SCH ×3 (08:41→21:09)
[2022-09-13] MEDS: DULoxetine DR 60 mg CAP PO SCH (08:41)
[2022-09-13] MEDS: POTASSIUM CITRATE 10 MEQ PO SCH ×2 (08:41→21:06)
[2022-09-13] MEDS ORDERED: Polyethylene Glycol 3350 17 GM PACKET PO SCH (10:00)
[2022-09-13] MEDS ORDERED: Polyethylene Glycol 3350 17 GM PACKET ONE (10:06)
[2022-09-13 14:04] LABS: Urine Appearance Turbid; Urine Bilirubin Negative (Negative); Urine Blood 1+ (Negative); Urine Color Amber; Urine Glucose Negative (Negative); Urine Ketones Negative (Negative); Urine Nitrite Positive (Negative); Urine Protein 1+(30 mg/dL) (Negative); Urine Specific Gravity 1.015 (1.002-1.030); Urine Urobilinogen Negative (Negative)
[2022-09-13 14:24] LABS: Urine Bacteria 1+ (Absent); Urine Red Blood Cell 2+(6-10/hpf) (Absent); Urine Squamous Epithelial Cell Present (Absent); Urine White Blood Cell 3+(>20/hpf) (Absent)
[2022-09-13] MEDS ORDERED: cefTRIAXone 1 gm/50 mL D5W 1 GM/50 ML BAG IV SCH (14:30)
[2022-09-13] MEDS ORDERED: Polyethylene Glycol 3350 17 GM PACKET PO PRN (16:55)
[2022-09-13] MEDS: Enoxaparin 40 MG/0.4 ML SYR SUBCUT SCH (21:05)
[2022-09-14] MEDS: Magnesium Hydroxide LIQ 30 ML UDC PO SCH (08:22)
[2022-09-14] MEDS: POTASSIUM CITRATE 10 MEQ PO SCH (08:31)
[2022-09-14] MEDS: DULoxetine DR 60 mg CAP PO SCH (08:33)
[2022-09-14] MEDS: VIBEGRON 75 MG PO SCH (08:33)
[2022-09-14 08:40] LABS: Rapid COVID-19 Molecular Undetected (Undetected)
[2022-09-14 10:21] VITALS: BP 115/55
== END 2022-09-14 13:10 | DRG 552 ==
LOC: ED 22:01 → EDHOLD 22:01 → SSU 09-09 10:24 → SUATTDRO 09-10 13:30
PROVIDERS: ADMIT Hospitalist; ATTEND Internal Medicine

== ENCOUNTER 2022-10-26 14:48 | Observation (INO) ==
[2022-10-26 16:52] LABS: ABS Basophils 0.2 10^3/uL (0.0-0.1); ABS Eosinophils 0.5 10^3/uL (0.0-0.5); ABS Lymphocytes 1.2 10^3/uL (1.0-4.8); ABS Monocytes 1.4 10^3/uL (0.0-0.9); ABS Neutrophils 7.1 10^3/uL (1.5-7.6); ABS Nucleated RBC 0.02 10^3/ul; Eosinophil % 4.6 %; Hematocrit 40.7 % (35-45); Hemoglobin 13.5 g/dL (11.5-14.3); Lymphocyte % 11.3 %; Mean Corpuscular Hemoglobin 29.6 pg (27-33); Mean Corpuscular Hgb Conc 33.1 g/dL (31-36); Mean Corpuscular Volume 89.5 fL (80-97); Mean Platelet Volume 7.4 fL (7.5-11.2); Nucleated Red Blood Cells % 0.2 /100 WBC (0.0-0.4); Platelet Count 312 10^3/uL (150-450); Red Blood Count 4.55 10^6/uL (3.63-4.92); Red Cell Distribution Width 15.2 % (12-17); White Blood Count 10.3 10^3/uL (3.8-11.8)
[2022-10-26 16:54] LABS: Venous Bicarbonate HCO3 28.4 mmol/L (24-28)
[2022-10-26 17:08] LABS: Albumin 3.8 g/dL (3.2-5.2); Albumin/Globulin Ratio 1.1 (1-3); C Reactive Protein 31.04 mg/L (<8.01); Creatinine, Serum 0.78 mg/dL (0.51-0.95); Globulin 3.5 g/dL (2-4); Total Bilirubin 0.5 mg/dL (0.2-1.0); Total Protein 7.3 g/dL (6.4-8.9); eGFR CKD-EPI 82.2 (>60)
[2022-10-26] MEDS ORDERED: Cefepime 1 GM in Dextrose 1 GM/50 ML BAG IV ONE (17:39)
[2022-10-26 19:12] LABS: Erythrocyte Sed Rate 30 mm/Hr (0-29)
[2022-10-26] MEDS ORDERED: Senna TAB 8.6 mg TAB PO PRN (19:27)
[2022-10-26] MEDS ORDERED: Magnesium Hydroxide LIQ 30 ML UDC PO PRN (19:40)
[2022-10-26] MEDS ORDERED: Enoxaparin 40 MG/0.4 ML SYR SUBCUT SCH (20:00)
[2022-10-26] MEDS ORDERED: Piperacillin/Tazobac 3.375 BAG 3.375 GM/100 ML BAG IV ONE (20:17)
[2022-10-26] MEDS ORDERED: Zosyn per Pharmacy NOTE FOLLOW UP SCH (21:00)
[2022-10-26] MEDS: NF: Potassium Citrate 10 meq TAB (NF) PO SCH (22:42)
[2022-10-27] MEDS: ZOSYN 3.375 GM Q8H per EXTENDED INFUSION IV SCH ×3 (01:28→17:55)
[2022-10-27] MEDS ORDERED: ZOSYN 3.375 GM Q8H per EXTENDED INFUSION IV SCH (01:30)
[2022-10-27] MEDS ORDERED: Dextrose 50% Syringe 50 ml 25 GM/50 ML SYRINGE IV PUSH PRN (02:00)
[2022-10-27 06:51] LABS: ABS Basophils 0.1 10^3/uL (0.0-0.1); ABS Eosinophils 0.4 10^3/uL (0.0-0.5); ABS Lymphocytes 0.9 10^3/uL (1.0-4.8); ABS Neutrophils 4.8 10^3/uL (1.5-7.6); Eosinophil % 5.9 %; Hematocrit 36.3 % (35-45); Lymphocyte % 12.1 %; Mean Corpuscular Hemoglobin 29.5 pg (27-33); Mean Corpuscular Volume 89.4 fL (80-97); Mean Platelet Volume 7.6 fL (7.5-11.2); Nucleated Red Blood Cells % 0.1 /100 WBC (0.0-0.4); Platelet Count 275 10^3/uL (150-450); Red Blood Count 4.06 10^6/uL (3.63-4.92); White Blood Count 7.2 10^3/uL (3.8-11.8)
[2022-10-27 07:05] LABS: Albumin 3.1 g/dL (3.2-5.2); Calcium 8.4 mg/dL (8.6-10.3); Creatinine, Serum 0.74 mg/dL (0.51-0.95); Globulin 3.1 g/dL (2-4); Total Bilirubin 0.7 mg/dL (0.2-1.0); Total Protein 6.2 g/dL (6.4-8.9); eGFR CKD-EPI 87.5 (>60)
[2022-10-27] MEDS: DULoxetine DR 60 mg CAP PO SCH (08:39)
[2022-10-27] MEDS: NF: Vibegron 75 MG TAB (NF) PO SCH (08:43)
[2022-10-27] MEDS: Polyethylene Glycol 3350 17 GM PACKET PO SCH (08:44)
[2022-10-27] MEDS: NF: Potassium Citrate 10 meq TAB (NF) PO SCH ×2 (08:44→20:40)
[2022-10-27] MEDS: CYANOCOBALAMIN COBAMAMIDE SL SCH (08:44)
[2022-10-28] MEDS: ZOSYN 3.375 GM Q8H per EXTENDED INFUSION IV SCH ×3 (01:22→17:30)
[2022-10-28 06:27] LABS: ABS Basophils 0.1 10^3/uL (0.0-0.1); ABS Eosinophils 0.5 10^3/uL (0.0-0.5); ABS Lymphocytes 0.8 10^3/uL (1.0-4.8); ABS Monocytes 1.1 10^3/uL (0.0-0.9); ABS Neutrophils 7.9 10^3/uL (1.5-7.6); Eosinophil % 5.2 %; Hematocrit 38.3 % (35-45); Hemoglobin 12.7 g/dL (11.5-14.3); Lymphocyte % 7.3 %; Mean Corpuscular Hemoglobin 29.6 pg (27-33); Mean Corpuscular Hgb Conc 33.1 g/dL (31-36); Mean Corpuscular Volume 89.6 fL (80-97); Mean Platelet Volume 7.7 fL (7.5-11.2); Platelet Count 288 10^3/uL (150-450); Red Blood Count 4.27 10^6/uL (3.63-4.92); Red Cell Distribution Width 14.9 % (12-17); White Blood Count 10.4 10^3/uL (3.8-11.8)
[2022-10-28 06:52] LABS: Calcium 8.3 mg/dL (8.6-10.3); Creatinine, Serum 0.7 mg/dL (0.51-0.95); Potassium 3.9 mmol/L (3.5-5.0); eGFR CKD-EPI 93.6 (>60)
[2022-10-28] MEDS: DULoxetine DR 60 mg CAP PO SCH (08:57)
[2022-10-28] MEDS: Polyethylene Glycol 3350 17 GM PACKET PO SCH (08:59)
[2022-10-28] MEDS: NF: Potassium Citrate 10 meq TAB (NF) PO SCH ×2 (09:00→21:15)
[2022-10-28] MEDS: CYANOCOBALAMIN COBAMAMIDE SL SCH (09:00)
[2022-10-28] MEDS: NF: Vibegron 75 MG TAB (NF) PO SCH (09:00)
[2022-10-29] MEDS: ZOSYN 3.375 GM Q8H per EXTENDED INFUSION IV SCH ×2 (01:58→08:31)
[2022-10-29 07:55] LABS: ABS Basophils 0.1 10^3/uL (0.0-0.1); ABS Eosinophils 0.4 10^3/uL (0.0-0.5); ABS Lymphocytes 0.8 10^3/uL (1.0-4.8); ABS Neutrophils 6.3 10^3/uL (1.5-7.6); ABS Nucleated RBC 0.02 10^3/ul; Eosinophil % 4.6 %; Hematocrit 36.5 % (35-45); Hemoglobin 12.2 g/dL (11.5-14.3); Mean Corpuscular Hemoglobin 29.8 pg (27-33); Mean Corpuscular Hgb Conc 33.3 g/dL (31-36); Mean Corpuscular Volume 89.3 fL (80-97); Nucleated Red Blood Cells % 0.2 /100 WBC (0.0-0.4); Platelet Count 286 10^3/uL (150-450); Red Blood Count 4.09 10^6/uL (3.63-4.92); White Blood Count 8.6 10^3/uL (3.8-11.8)
[2022-10-29 08:05] LABS: Calcium 8.5 mg/dL (8.6-10.3); Creatinine, Serum 0.66 mg/dL (0.51-0.95); Potassium 4.1 mmol/L (3.5-5.0); eGFR CKD-EPI 94.9 (>60)
[2022-10-29] MEDS: DULoxetine DR 60 mg CAP PO SCH (08:29)
[2022-10-29] MEDS: Polyethylene Glycol 3350 17 GM PACKET PO SCH (08:30)
[2022-10-29] MEDS: CYANOCOBALAMIN COBAMAMIDE SL SCH (08:39)
[2022-10-29] MEDS: NF: Vibegron 75 MG TAB (NF) PO SCH (08:39)
[2022-10-29] MEDS: NF: Potassium Citrate 10 meq TAB (NF) PO SCH (08:39)
[2022-10-29 14:28] VITALS: BP 112/63
== END 2022-10-29 16:20 | disposition home or self-care (01) ==
LOC: EDHOLD 14:48 → ED 14:48 → SUATTDRO 19:15 → MEDTELE 23:35
PROVIDERS: ADMIT Student in an Organized Health Care Education/Training Program; ATTEND Internal Medicine